=== PATIENT | male | born 1960 | race Caucasian/White ===

== ENCOUNTER → 2020-05-07 13:24 | Outpatient (BNVA) | payer MEDICARE, MEDICAID, SELFPAY | PROVIDERS: PCP Physician Assistant; Referring Provider Physician Assistant; Visit Provider Internal Medicine Endocrinology, Diabetes & Metabolism | DX: E06.3 Autoimmune thyroiditis (principal); E04.1 Nontoxic single thyroid nodule; E66.3 Overweight; E78.2 Mixed hyperlipidemia; E03.9 Hypothyroidism, unspecified | CPT/HCPCS: 99212 ==

== ENCOUNTER 2020-06-14 15:29 | Outpatient (REF) | payer MEDICARE, MEDICAID, SELFPAY | END 2020-06-14 15:30 | disposition home or self-care (01) | LOC: HO.LAB 15:29 | PROVIDERS: Visit Provider Internal Medicine | DX: Z20.828 Contact with and (suspected) exposure to other viral communicable diseases (principal) | CPT/HCPCS: C9803; U0003 ==

== ENCOUNTER 2020-11-12 12:33 | Outpatient (REF) | payer MEDICARE, MEDICAID, SELFPAY ==
[2020-11-12 13:56] LABS: Cholesterol 255 mg/dL; HDL Cholesterol 59 mg/dL; LDL Cholesterol Calculated 169 mg/dl; Triglycerides 136 mg/dL
[2020-11-12 14:16] LABS: Thyroid Stimulating Hormone 2.34 uIU/mL (0.32-4.0)
[2020-11-13 12:57] LABS: LDL Cholesterol Direct 179 mg/dL (<100)
== END 2020-11-12 12:34 | disposition home or self-care (01) ==
LOC: HO.LAB 12:33
PROVIDERS: PCP Physician Assistant; Visit Provider Internal Medicine Endocrinology, Diabetes & Metabolism
DX: E78.2 Mixed hyperlipidemia (principal); E06.3 Autoimmune thyroiditis; E03.8 Other specified hypothyroidism; E04.1 Nontoxic single thyroid nodule; E66.3 Overweight; Z68.29 Body mass index [BMI] 29.0-29.9, adult; Z79.899 Other long term (current) drug therapy
CPT/HCPCS: 36415; 80061; 83721; 84439; 84443; 99212

== ENCOUNTER 2021-11-16 15:32 | Outpatient (REF) | payer MEDICARE, MEDICAID, SELFPAY ==
[2021-11-16 15:49] LABS: Hematocrit 45.7 % (42.0-52.0); Hemoglobin 15.2 g/dl (14.0-18.0); Mean Corpuscular HGB Conc 33.3 g/dl (31.0-36.0); Mean Corpuscular Hemoglobin 30.3 pg (27.0-33.0); Mean Platelet Volume 9.4 fL (9.4-12.4); Platelet Count 319 X10*3/uL (160-400); Red Blood Count 5.02 X10*6/uL (4.60-5.80); Red Cell Distribution Width 12.4 % (11.0-16.0); White Blood Count 9.8 X10*3/uL (4.8-10.8)
[2021-11-16 15:59] LABS: Estimated Average Glucose 108 mg/dL; Hemoglobin A1c % 5.4 %
[2021-11-16 16:17] LABS: Alanine Aminotransferase 19 U/L (0-40); Albumin Level 4.2 g/dL (3.5-5.0); Alkaline Phosphatase 60 U/L (39-117); Anion Gap 16 (12-20); Aspartate Amino Transferase 22 U/L (5-37); Bilirubin Total 0.8 mg/dL (0.0-1.0); Blood Urea Nitrogen 8 mg/dL (9-16); Calcium 9.7 mg/dL (8.4-10.2); Carbon Dioxide 21 mmol/L (22-29); Chloride 105 mmol/L (96-108); Estimated Glomerular Filt Rate 50; Glucose Fasting 154 mg/dL (60-99); Potassium 4.3 mmol/L (3.3-5.1); Sodium 138 mmol/L (135-145); Total Protein 7.7 g/dL (6.5-8.0)
[2021-11-16 16:18] LABS: Alanine Aminotransferase 19 U/L (0-40); Albumin Level 4.2 g/dL (3.5-5.0); Alkaline Phosphatase 58 U/L (39-117); Anion Gap 15 (12-20); Aspartate Amino Transferase 22 U/L (5-37); Bilirubin Total 0.7 mg/dL (0.0-1.0); Blood Urea Nitrogen 8 mg/dL (9-16); Calcium 9.7 mg/dL (8.4-10.2); Carbon Dioxide 21 mmol/L (22-29); Chloride 106 mmol/L (96-108); Cholesterol 257 mg/dL; Estimated Glomerular Filt Rate 51; Glucose Fasting 152 mg/dL (60-99); HDL Cholesterol 54 mg/dL; LDL Cholesterol Calculated 162 mg/dl; Potassium 4.3 mmol/L (3.3-5.1); Sodium 138 mmol/L (135-145); Total Protein 7.6 g/dL (6.5-8.0); Triglycerides 209 mg/dL
[2021-11-16 16:39] LABS: TSH reflex Free T4 3.34 uIU/mL (0.32-4.0)
[2021-11-16 17:26] LABS: Creatinine Urine 619.67 mg/dL; Microalbum/Creatinine Ratio Ur 4.3 ug/mg cr
== END 2021-11-16 15:33 | disposition home or self-care (01) ==
LOC: HO.LAB 15:32
PROVIDERS: Nurse Practitioner Family; PCP Physician Assistant; Visit Provider Physician Assistant
DX: Z12.5 Encounter for screening for malignant neoplasm of prostate (principal); Z13.1 Encounter for screening for diabetes mellitus; E78.1 Pure hyperglyceridemia; I10 Essential (primary) hypertension; R73.02 Impaired glucose tolerance (oral)
CPT/HCPCS: 36415; 80053; 80061; 82043; 83036; 84153; 84443; 85027

== ENCOUNTER → 2022-06-19 10:45 | Outpatient (BNVA) | payer MEDICARE, MEDICAID, SELFPAY | PROVIDERS: PCP Physician Assistant; Referring Provider Physician Assistant; Visit Provider Physician Assistant | DX: Z12.11 Encounter for screening for malignant neoplasm of colon (principal) | CPT/HCPCS: 99202 ==

== ENCOUNTER 2022-06-28 15:34 | Outpatient (REF) | payer MEDICARE, MEDICAID, SELFPAY ==
--- NOTE | ~2022-06-28 | XR_ITS ---
EXAMINATION: XR KNEE AP STANDING CLINICAL INFORMATION: Bilateral AP knee standing. COMPARISON: None TECHNIQUE: AP bilateral standing view of the knees was obtained. FINDINGS: The medial and lateral compartment joint space is normal. No bony erosive changes seen. No loose bodies. The soft tissues are normal. XR/XR knee standing BI IMPRESSION: Unremarkable bilateral AP knee standing.
--- NOTE | ~2022-06-28 | US_ITS ---
EXAMINATION: US THYROID CLINICAL INFORMATION: Nontoxic single thyroid nodule. COMPARISON: Ultrasound soft tissue head/neck thyroid dated 01/18/2017. TECHNIQUE: Linear transducer thomas-scale and color Doppler examination with attention to the region of the thyroid. FINDINGS: SIZE: Measurements of the thyroid lobes and nodules are given in sagittal, anteroposterior and transverse dimensions respectively. Right Thyroid Lobe: 4.6 x 1.5 x 1.2 cm, volume 4.4 mL. Previously 4.4 x 1.8 x 1.7 cm, volume 7.0 mL. Parenchyma: The gland echotexture is heterogeneous. Thyroid vascularity is normal. Left Thyroid Lobe: 3.7 x 1.3 x 1.2 cm, volume 3.2 mL. Previously 3.7 x 1.5 x 1.4 cm, volume 4.1 mL. Parenchyma: The gland echotexture is heterogeneous. Thyroid vascularity is increased. Isthmus: 0.3 cm in maximum AP dimension. Previously 0.4 cm. No focal thyroid nodule is seen. NODES: No lymphadenopathy is seen in the tissue surrounding the thyroid gland. US/US thyroid IMPRESSION: Normal-sized thyroid gland with slight heterogeneous appearance in both lobes. There is slight increased vascularity in the right lobe. However, there is no nodule visualized at this time. No abnormal lymph nodes seen either. ACR TI-RADS RECOMMENDATION REFERENCE: Ultrasound-guided fine-needle aspiration, followup ultrasound, no further follow up. * TR1 (0 point) and TR 2 (2 points): No FNA or follow up * TR3 (3 points): FNA if more than or equal to 2.5 cm in maximum dimension, followup ultrasound in 1, 3 and 5 years if 1.5 to 2.4 cm in maximum dimension. * TR4 (4-6 points): FNA if more than or equal to 1.5 cm in maximum dimension, followup ultrasound in 1, 2, 3 and 5 years if 1 to 1.4 cm in maximum dimension. * TR5 (more than or equal to 7 points): FNA if more than or equal to 1 cm in maximum dimension, followup ultrasound every year for 5 years if 0.5 to 0.9 cm in maximum dimension. * TR3, TR4 or TR5 nodules that are below the size threshold for follow up receive no follow up.
== END 2022-06-28 15:35 | disposition home or self-care (01) ==
LOC: HO.US 15:34
PROVIDERS: PCP Physician Assistant; Visit Provider Physician Assistant
DX: E04.1 Nontoxic single thyroid nodule (principal); M17.0 Bilateral primary osteoarthritis of knee
CPT/HCPCS: 73565; 76536

== ENCOUNTER 2022-12-28 09:26 | Day surgery (SDC) | payer MEDICARE, MEDICAID, SELFPAY ==
[2022-12-26 10:26] VITALS: BMI 28.0
--- NOTE | 2022-12-26 14:41 | HO.ANESPROP2 ---
Documented by User: Natalie Saleh NP 12/26/22 14:41 HPI - Anesthesia Eval Consult details Narrative: 62yo M for Colonoscopy PMF Active Problems Active Problems: All Active Problems (Updated 06/19/22 @ 12:06 by Yue Patricio PA-C) Encounter for screening colonoscopy (Acute) Bilateral primary osteoarthritis of knee (Acute) Colon cancer screening (Acute) Adult general medical exam (Acute) Screening for prostate cancer (Acute) Screening for diabetes mellitus (Acute) HTN (hypertension) (Acute) MADHURI (generalized anxiety disorder) (Acute) Lumbar spine pain (Acute) Subclinical hypothyroidism (Acute) Mixed hypercholesterolemia and hypertriglyceridemia (Acute) Overweight (BMI 25.0-29.9) (Acute) Alcohol abuse (Acute) Margaret's disease (Acute) Thyroid nodule (Acute) Hypertriglyceridemia (Acute) Insomnia (Acute) Past Medical History Medical History Alcohol abuse Margaret's disease Hypertriglyceridemia Mixed hypercholesterolemia and hypertriglyceridemia Overweight (BMI 25.0-29.9) Screening for diabetes mellitus Screening for prostate cancer Subclinical hypothyroidism Thyroid nodule Family History Family History Father Gout Mother Diabetes Surgical History Surgical History History of colonoscopy History of surgery on wrist Hx of eye surgery Social History Social History Household Members: None Housing: Apartment Alcohol intake: current Alcohol intake frequency: 0-2 drinks per day Alcohol type: beer Patient Tobacco Use Status: Never used Tobacco e-Cigarette/Vaping Use: Never Used Use of substances other than those prescribed or required for medical reasons: No Advance Directives: No Advance Directives Information Provided: Yes service: No Current occupational status: retired and disabled Cognitive needs: No Hearing needs: No Vision needs: Yes (Pt wear reading glasses.) Meds Allergies Allergy/AdvReac Type Severity Reaction Status Date / Time lisinopril [LISINOPRIL] Allergy Unknown HIVES Verified 09/06/22 10:08 Lisinopril (10 MG) Allergy Unknown hives Uncoded 09/06/22 09:53 Exam Exam Date and Time: December 26, 2022 1441 Height,Weight and Vital Signs: Height 5 ft 8 in Weight 83.461 kg Assessment and Plan Assessment Anesthesia Assessment: Chart Reviewed Documented by User: Ana Joe MD 12/28/22 10:57 [facility] Past Medical History Medical History Alcohol abuse Margaret's disease Hypertriglyceridemia Mixed hypercholesterolemia and hypertriglyceridemia Overweight (BMI 25.0-29.9) Screening for diabetes mellitus Screening for prostate cancer Subclinical hypothyroidism Thyroid nodule Family History Family History Father Gout Mother Diabetes Family history of problems with anesthesia: No Surgical History Surgical History History of colonoscopy History of surgery on wrist Hx of eye surgery History of Problems with Anesthesia: No Social History Social History Household Members: None Housing: Apartment Alcohol intake: current Alcohol intake frequency: 0-2 drinks per day Alcohol type: beer Patient Tobacco Use Status: Never used Tobacco e-Cigarette/Vaping Use: Never Used Use of substances other than those prescribed or required for medical reasons: No Advance Directives: No Advance Directives Information Provided: Yes service: No Current occupational status: retired and disabled Cognitive needs: No Hearing needs: No Vision needs: Yes (Pt wear reading glasses.) Meds Allergies Allergy/AdvReac Type Severity Reaction Status Date / Time lisinopril [LISINOPRIL] Allergy Unknown HIVES Verified 09/06/22 10:08 Lisinopril (10 MG) Allergy Unknown hives Uncoded 09/06/22 09:53 Exam Airway Mallampati Class: II TM Dist: >3cm Loose/Missing/Broken Teeth: No Heart: rr Lungs: cta Assessment and Plan Assessment Anesthesia Assessment: Anesthesia Plan Discussed Final Anesthetic Review Family History of Problems with Anesthesia: No History of Problems with Anesthesia: No NPO: Yes ASA Class: II Final Preanesthetic Review: No Changes in Pt Med Stat, Meds/Allgs Chart Reviewed, Consent Obtained/Reviewed and Anes Risks/Benef Reviewed Patient Risk: Low Procedure Risk: Low Anesthetic Plan Anesthetic Plan: MAC: Disposition: Standard PACU
[2022-12-28 09:38] VITALS: BMI 28.0
[2022-12-28 09:57] VITALS: BP 147/76; PULSE 61; RESP 16; TEMP 36.6; O2SAT 96
[2022-12-28] MEDS: Lactated Ringers 1,000 ML 100 ML IVCONT (09:58)
--- NOTE | 2022-12-28 11:02 | P.OP_ITS ---
Operative Note Operative Note Date of Service: 12/28/22 Narrative: Procedure: Colonoscopy Indication: Screening Endoscopist: Thelma Sarmiento MD Anesthesia Provider: Santa Watkins CRNA Anesthesia type: MAC Instrument: Olympus [id number]-[id number] Consent: Indication, risks vs benefits, and alternatives were discussed with the patient who gave written informed consent to proceed. EKG, pulse, pulse oximetry and blood pressure were monitored throughout the procedure. Please see anesthesia flowsheet. Procedure: The patient was brought to the procedure room and placed in the left lateral decubitus position. IV medications were administered by the anesthesia provider in attendance. A digital rectal exam was performed which was abnormal due to significant anal stenosis which was dilated digitally. A distal attachment cap was affixed to the tip of the scope and the colonoscope was then inserted through the anus and advanced through the colon to the cecum at 70 cm,and terminal ileum. Mucosa was carefully examined under high definition white light as the instrument was slowly withdrawn in a retrograde panoramic fashion. Retroflexion was performed in rectum. The procedure was not difficult. There were no immediate obvious complications. The quality of the prep was BBPS: 3+2+2 = adequate Withdrawal time 9 minutes. Limitations: No limitations. Findings: Mucosa: Normal to cecum and terminal ileum. Protruding lesions: * Large internal hemorrhoids without stigmata of recent bleeding. Additional intervention: Small tear was noted at the anal orifice due to digital dilation. Lidocaine 10% was applied topically. Impression: 1. Normal colon and terminal ileum mucosa 2. Internal hemorrhoids 3. Anal stenosis (dilation) Recommendations: - Pt did not report any trouble with constipation or painful defecation (fissure) in pre-op, and no reported hx of hemorrhoidectomy. Can consider colorectal surgery referral for further evaluation of anal stenosis - Repeat colonoscopy for CRC screening in 10 years.
--- NOTE | 2022-12-28 11:02 | MHC.SHP ---
Pre-Procedural Eval Section A Date of Service: 12/28/22 Section B Chief Complaint: Encounter for screening for malignant neoplasm Details of Present Illness: PMH: Alcohol abuse Margaret's disease Hypertriglyceridemia Mixed hypercholesterolemia and hypertriglyceridemia Overweight (BMI 25.0-29.9) Screening for diabetes mellitus Screening for prostate cancer Subclinical hypothyroidism Thyroid nodule Surgical History: History of colonoscopy History of surgery on wrist Hx of eye surgery Present Medications: see Short Stay Collaborative assessment Allergies: Allergies Allergy/AdvReac Type Severity Reaction Status Date / Time lisinopril [LISINOPRIL] Allergy Unknown HIVES Verified 09/06/22 10:08 Lisinopril (10 MG) Allergy Unknown hives Uncoded 09/06/22 09:53 Review of Systems Review of Systems Comment: Ten point ROS negative Exam Exam Comment: Gen appear: No acute distress HEENT: no icterus Chest: No overt resp distress Abd: soft, nontender, nondistended Psych: Stable affect, answering questions appropriately Neuro: A/Ox3 noted to move all extremities spontaneously Ext: no peripheral edema Plan Diagnosis/Plan: Unchanged I have reviewed the history and physical and performed a pertinent physical examination on my patient. No changes have occurred unless specified. Time Spent With Patient Time: Total time managing care of this patient today ____ minutes.
[2022-12-28 11:50] VITALS: BP 134/77; PULSE 69; RESP 16; TEMP 36.5; O2SAT 98
[2022-12-28 12:05] VITALS: BP 136/76; PULSE 64; RESP 18; TEMP 36.3; O2SAT 98
== END 2022-12-28 12:40 | disposition home or self-care (01) ==
PROVIDERS: PCP Physician Assistant; Visit Provider Internal Medicine
PROC: 0DJD8ZZ Inspection of Lower Intestinal Tract, Via Natural or Artificial Opening Endoscopic (ICD-10-PCS; CPT 45378; principal; 2022-12-28 10:40)
DX: Z12.11 Encounter for screening for malignant neoplasm of colon (principal); K62.4 Stenosis of anus and rectum; K64.8 Other hemorrhoids; Z88.8 Allergy status to other drugs, medicaments and biological substances
CPT/HCPCS: 45905; G0121

== ENCOUNTER 2023-12-18 11:04 | Outpatient (AMB) | payer MEDICARE, MEDICAID, SELFPAY ==
--- NOTE | 2023-12-18 11:28 | A.OFFPC_ITS ---
Vital Signs 12/18/23 11:30 Height 5 ft 8 in Weight 164 lb 2 oz BMI 25.0 BP 104/50 L Blood Pressure Location Lt brachial Position Sitting Pulse 80 Pulse Source Pulse Oximeter Pulse Oximetry (%) 97 Oxygen Delivery Method Room Air Intake Visit Reasons: Pain Right Knee Intake Note: The patient is here for right knee pain persisting over the past two months, experiencing difficulty bending the knee or standing up. 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 Required: No Accompanied by: Self / Same As Patient Allergies lisinopril [LISINOPRIL] Allergy (Unknown, Verified 12/18/23 11:50) HIVES Lisinopril (10 MG) Allergy (Unknown, Uncoded 12/18/23 11:50) hives Tobacco use date assessed: 12/18/23 Dental Screening Dental Screen Date: 12/18/23 Did you have a dental visit in the last 12 months?: Yes Did you have a dental problem in the last 6 months where you did not have access to dental care?: No Was dental information given to patient?: Patient has dentist HPI Pain Right Knee HPI Details Patient is a 63-year-old male here today for a problem visi/follow-up: t Patient has a past medical history significant for gout, hyperlipidemia, hypertension, anxiety, mood disorder, alcohol use disorder. He reports he has been having right knee pain over the last 2 months that actually has been getting better since he has been taking [id number] arthritic medication. He would still like to have x-rays and seeing orthopedic Also noted significant weight loss since last office visit. Will check up on his thyroid. CHRONIC MEDICAL CONDITIONS-- .. Alcohol use disorder:? Drinking 3-4 beers per day.? He denies having any withdrawal symptoms suggest seizures.? He does use tylenol 3 On occasions his lower back pain.? Warned him about using Tylenol No. 3 with this medication any promises not to use them in conjunction with each other. . HTN: Doesn't follow his BP at home. Blood pressure slightly on the low side today in office. Could be because of his weight loss ? Continues on enalapril though side effect.? Denies any headaches, chest discomfort, palpitations. .. Hypothyroidism:? Patient was followed by oriental rug stretcher though has left the practice.? Most recent TSH stable.? Continues on levothyroxine 50 mcg daily.? He has been found to have a thyroid nodule on is due for a thyroid ultrasound that it missed appointment.? Will pre order ultrasound thyroid .. Mood disorder:? He was seeing a psychiatrist years ago though has lost follow- up.? He was previously on Xenia pain though this has been discontinued..? He feels his mood has been stable without medication at this time. REports he is still drinking 3-4 beer per day. [facility] Medical History Screening for prostate cancer Screening for diabetes mellitus Subclinical hypothyroidism Mixed hypercholesterolemia and hypertriglyceridemia Overweight (BMI 25.0-29.9) Alcohol abuse Margaret's disease Thyroid nodule Hypertriglyceridemia Surgical History History of colonoscopy History of surgery on wrist Hx of eye surgery Family History Father Gout Mother Diabetes Social History Household Members: None Housing: Apartment Alcohol intake: current Alcohol intake frequency: 0-2 drinks per day Alcohol type: beer Patient Tobacco Use Status: Never used Tobacco e-Cigarette/Vaping Use: Never Used service: No Current occupational status: retired and disabled Cognitive needs: No Hearing needs: No Vision needs: Yes (Pt wear reading glasses.) Questionnaire PHQ-9 Over the last 2 weeks, how often have you been bothered by any of the following problems? 1. Little interest or pleasure in doing things: not at all 2. Feeling down, depressed, or hopeless: not at all 3. Trouble falling or staying asleep, or sleeping too much: not at all 4. Feeling tired or having little energy: not at all 5. Poor appetite or overeating: not at all 6. Feeling bad about yourself - or that you are a failure or have let yourself or your family down: not at all 7. Trouble concentrating on things, such as reading the newspaper or watching television: not at all 8. Moving or speaking so slowly that other people could have noticed. Or the opposite - being so fidgety or restless that you have been moving around a lot more than usual: not at all 9. Thoughts that you would be better off or of hurting yourself in some way: not at all Total score: 0 Depression Screening Interpretation: Negative Depression Screening Done: Yes 16196 - PHQ-9 Billing: Yes Source: Developed by Drs. Edson Lemons, Ellie Dowd, Ba Ibarra and colleagues, with an educational malcolm from [employer]. Thrive Questionnaire Date Thrive assessed: 12/18/23 I am a: Patient What is your living situation today?: I have a steady place to live Within the past 12 months, did the food you bought not last and you didn't have the money to get more?: Never true Within the past 12 months, did you worry whether your food would run out before you got money to buy more?: Never true Do you have trouble paying for medicines?: No Do you have trouble getting transportation to medical appointments?: No Do you have trouble paying your heating and electricity bill?: No Do you have trouble taking care of your child, family member or friend?: No Do you have trouble with day-to-day activities such as bathing, preparing meals, shopping, managing finances, etc.?: No Are you currently unemployed and looking for a job?: No Are you interested in more education?: No Please select the resources that you would like help with: None Currently or been in a relationship where the following occur: no concerns reported THRIVE Score: 0 AUDIT C Alcohol Use Questionnaire (AUDIT-C) 1. How often do you have a drink containing alcohol?: 2-3 times a week 2. How many drinks containing alcohol do you have on a typical day when you are drinking?: 3 or 4 (beer during the weekend and hard liquor on holiday.) 3. How often do you have six or more drinks on one occasion?: Monthly Total Score: 6 MADHURI-7 AMB Questionnaire MADHURI-7 Date MADHURI - 7 assessed: 12/18/23 Feeling nervous, anxious, or on edge: 0 = Not at all Not being able to stop or control worryin = Not at all Worrying too much about different things: 0 = Not at all Trouble relaxin = Not at all Being so restless that it is hard to sit still: 0 = Not at all Becoming easily annoyed or irritable: 0 = Not at all Feeling afraid as if something awful might happen: 0 = Not at all Total MADHURI-7 score (0-4 normal; 5-9 mild; 10-14 moderate; 15-21 severe): 0 Source: Developed by Drs. Edson Lemons, Ellie Dowd, Ba Ibarra and colleagues, with an educational malcolm from [employer]. MADHURI-7 Assessment Billing MADHURI-7 Assessment Tool: MADHURI-7 Assessment 47760 Review of Systems Const Denies headache(s) Eyes Denies loss of vision ENT Denies vertigo, Denies dizziness, Denies headache(s) and Denies sore throat Card Denies chest pain, Denies leg edema and Denies lightheadedness Resp Denies cough, Denies hemoptysis and Denies wheezing GI Denies abdominal pain, Denies melena, Denies constipation, Denies diarrhea and Denies vomiting Denies dysuria, Denies urinary frequency and Denies urinary urgency Musc Denies arthralgias, Denies joint swelling, Denies numbness and Denies tingling Neuro Denies Abnormal speech present, Denies behavioral changes, Denies vertigo, Denies dizziness, Denies headache(s), Denies loss of vision, Denies memory loss, Denies numbness and Denies tingling Psych Denies anxiety, Denies behavioral changes, Denies depression, Denies memory loss and Denies panic attacks Arsen/Lymph Denies easy bleeding and Denies easy bruising Aller/Immun Denies wheezing Physical exam (Primary Care) Vital Signs: Last Vital Signs Pulse 80 12/18/23 11:30 BP 104/50 L 12/18/23 11:30 Pulse Ox 97 12/18/23 11:30 Oxygen Delivery Method Room Air 12/18/23 11:30 BMI result Body Mass Index 25.0 Tobacco/Smoking Status: Tobacco use Status Tobacco use date assessed 12/18/23 12/18/23 11:32 Patient Tobacco Use Status Never used Tobacco 12/18/23 11:28 e-Cigarette/Vaping Use Never Used 12/18/23 11:28 PHQ-9: PHQ-9 Score PHQ-9: Total score 0 12/18/23 12:32 Depression Screening Interpretation: Negative Thrive Assessment: Date of Thrive Assessment Date Thrive assessed 12/18/23 12/18/23 11:32 Currently or been in a relationship where the following occur: no concerns reported Const General: healthy appearing, no acute distress, alert and awake Nutritional Appearance: well nourished Orientation/consciousness: oriented to person, oriented to place and oriented to time HENMT Ears: TM's normal bilaterally General nose exam: Normal nasal mucous membranes and turbinates present Eyes Conjunctivae: conjunctivae normal Sclerae: sclerae normal Pupils: Equal, round and reactive pupils present Neck Neck: Yes no lymphadenopathy and Yes no JVD Thyroid: Thyroid normal Carotids: no bruits Resp Effort & Inspection: normal respiratory effort and not tachypneic Auscultation: no crackles, no rales, no rhonchi and no wheezes Cardio Rate: regular rate Rhythm: regular rhythm Heart sounds: no murmurs and normal S1 and S2 GI Palpation (GI): Soft to palpation, nontender, no hepatomegaly and no splenomegaly Auscultation: normal bowel sounds Skin General skin exam: no rashes or lesions noted and dry skin Neuro General: oriented to person, oriented to place and oriented to time Cranial nerves: Yes Equal, round and reactive pupils present Speech: No Abnormal speech present Gait exam (Neuro): Normal gait present Motor exam (neuro): no tremor noted Extrem Right upper extremity: full ROM Left upper extremity: full ROM Right lower extremity: full ROM; no edema Left lower extremity: full ROM; no edema Psych Mental Status: mental status grossly normal Speech and movement: Normal speech and movement present Affect: normal affect Attitude: cooperative Thought process: Normal thought process present Assessment and Plan Assessment & Plan (1) HTN (hypertension): Code(s): I10 - Essential (primary) hypertension Qualifiers: Hypertension type: unspecified Qualified Code(s): I10 - Essential (primary) hypertension Plan: Blood pressure acceptable today in office. Will continue current antihypertensive medication with goal blood pressure to be below 140/90. (2) MADHURI (generalized anxiety disorder): Code(s): F41.1 - Generalized anxiety disorder Plan: Patient's MADHURI-7 score 0, has a history of anxiety. Not taking any mental health medications at this time. Not speaking with a mental health therapist or psychiatrist anymore. (3) Hypertriglyceridemia: Code(s): E78.1 - Pure hyperglyceridemia Plan: Patient's most recent fasting lipids showing elevated triglycerides likely related to his alcohol use. He does report having 2-3 drinks per day and does understand he needs to down. (4) Alcohol abuse: Code(s): F10.10 - Alcohol abuse, uncomplicated Plan: As per HPI patient does report drinking 2-3 beers daily. We did discuss the need for him to cut down his weekly amount of alcohol consumption and patient does agree and understands. (5) Bilateral primary osteoarthritis of knee: Code(s): M17.0 - Bilateral primary osteoarthritis of knee Plan: Patient reports worsening knee pain when bending down and kneeling. He is asking for DIRECTOR OF ANALYTICS to help him with activities of daily living such as cleaning in his apartment. Advised on getting x-rays of bilateral knees to evaluate for advanced arthritis. 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 Has noted significant amount of weight loss since last office visit. Will recheck TSH to ensure normal. r. Orders: Orders Microalbumin, Random (w Creat) Today I10 - Essential (primary) hypertension Comprehensive [place]. Panel Fast Today I10 - Essential (primary) hypertension TSH reflex Free T4 Today E06.3 - Autoimmune thyroiditis XR knee RT 3V Today M17.0 - Bilateral primary osteoarthritis of knee XR knee LT 3V Today M17.0 - Bilateral primary osteoarthritis of knee Lipid Panel Today E78.2 - Mixed hyperlipidemia Referrals Orthopedics Referral M17.0 - Bilateral primary osteoarthritis of knee Medications: Refilled fenofibrate 160 mg PO DAILY 30 days 30 tabs 6RF E78.2 - Mixed hyperlipidemia allopurinol 300 mg PO DAILY 30 caps 6RF atorvastatin 10 mg PO BEDTIME 30 tabs 6RF E78.2 - Mixed hyperlipidemia Discontinued hydroxyzine HCl Discontinued Reason: Doctor's Order 50 mg PO BEDTIME 30 tabs 6RF F41.1 - Generalized anxiety disorder Patient Instructions: Goal: Blood pressure to remain below 140/90 and above 100/60 Barriers: Adherence to physical activity and healthy eating habits Coding Level of Care Code Est Pt Level 4 (91311) Complex EM visit Add On G2211 Diagnoses Hypertension, unspecified type I10 Hypertension type: unspecified MADHURI (generalized anxiety disorder) F41.1 Hypertriglyceridemia E78.1 Alcohol abuse F10.10 Bilateral primary osteoarthritis of knee M17.0 Margaret's disease E06.3 Additional Codes MADHURI-7 Assessment Billing - MADHURI-7 Assessment Tool: MADHURI-7 Assessment [id number] ([id number])
[2023-12-18 11:30] VITALS: BP 104/50; PULSE 80; O2SAT 97; BMI 25.0
== END 2023-12-18 12:04 | disposition home or self-care (01) ==
PROVIDERS: PCP Physician Assistant; Visit Provider Physician Assistant
DX: I10 Essential (primary) hypertension (principal); F41.1 Generalized anxiety disorder; E78.1 Pure hyperglyceridemia; F10.10 Alcohol abuse, uncomplicated; M17.0 Bilateral primary osteoarthritis of knee; E06.3 Autoimmune thyroiditis
CPT/HCPCS: 99214; G2211

== ENCOUNTER 2024-02-05 09:56 | Outpatient (REF) | payer MEDICARE, MEDICAID, SELFPAY ==
[2024-02-05 11:43] LABS: Alanine Aminotransferase 23 U/L (0-40); Albumin Level 4.6 g/dL (3.5-5.0); Alkaline Phosphatase 48 U/L (39-117); Anion Gap 13 (12-20); Aspartate Amino Transferase 30 U/L (5-37); Bilirubin Total 0.3 mg/dL (0.0-1.0); Blood Urea Nitrogen 14 mg/dL (9-16); Carbon Dioxide 27 mmol/L (22-29); Chloride 107 mmol/L (96-108); Cholesterol 196 mg/dL (<200); Estimated Glomerular Filt Rate > 60; Glucose Fasting 100 mg/dL (60-99); HDL Cholesterol 65 mg/dL (>40); LDL Cholesterol Calculated 95 mg/dL (<100); Potassium 4.6 mmol/L (3.3-5.1); Sodium 142 mmol/L (135-145); Triglycerides 183 mg/dL (<150)
[2024-02-05 11:48] LABS: Creatinine Urine 212.87 mg/dL; Microalbum/Creatinine Ratio Ur 5.1 ug/mg cr (<30)
[2024-02-05 11:56] LABS: TSH reflex Free T4 3.55 uIU/mL (0.32-4.0)
== END 2024-02-05 09:57 | disposition home or self-care (01) ==
LOC: HO.XRAY 09:56
PROVIDERS: PCP Physician Assistant; Visit Provider Physician Assistant
DX: I10 Essential (primary) hypertension (principal); E06.3 Autoimmune thyroiditis; E78.2 Mixed hyperlipidemia
CPT/HCPCS: 36415; 80053; 80061; 82043; 82570; 84443

== ENCOUNTER 2024-02-13 08:10 | Outpatient (REF) | payer MEDICARE, MEDICAID, SELFPAY ==
--- NOTE | ~2024-02-13 | XR_ITS ---
EXAMINATION: XR KNEE, LEFT CLINICAL INFORMATION: Pain. COMPARISON: 06/20/2022 TECHNIQUE: AP standing view of bilateral knees as well as 2 views of the left knee. FINDINGS: Left Knee: Trace joint effusion. Extensive vascular calcifications. Mild narrowing of the lateral compartment with small lateral marginal osteophytes. Small posterior patellar osteophytes. AP standing view of the right knee demonstrates minimal narrowing of the lateral compartment with tiny lateral marginal osteophytes. XR/XR knee LT 3V IMPRESSION: Mild degenerative changes left knee. Electronically signed by: Tonia Friedman MD 03/12/2024 07:27 AM EDT
--- NOTE | ~2024-02-13 | XR_ITS ---
EXAMINATION: XR KNEE, RIGHT CLINICAL INFORMATION: Primary osteoarthritis right knee. COMPARISON: 06/20/2022 TECHNIQUE: Lateral and sunrise views of the right knee. FINDINGS: Extensive vascular calcifications. Tiny posterior patellar osteophytes with narrowing of the patellofemoral space. XR/XR knee RT 3V IMPRESSION: Mild degenerative changes. Electronically signed by: Tonia Friedman MD 03/12/2024 07:27 AM EDT
== END 2024-02-13 08:11 | disposition home or self-care (01) ==
LOC: HO.HOSX 08:10
PROVIDERS: PCP Physician Assistant; Visit Provider Physician Assistant
DX: M25.562 Pain in left knee (principal); M17.0 Bilateral primary osteoarthritis of knee
CPT/HCPCS: 73562; 99202

== ENCOUNTER 2024-02-13 09:21 | Outpatient (AMB) | payer MEDICARE, MEDICAID, SELFPAY ==
[2024-02-13 09:23] VITALS: BMI 24.9
--- NOTE | 2024-02-13 09:23 | A.OFFVIS_ITS ---
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 Patient reports his pain has been present for about a year, stating a few months ago he had an increase in pain with swelling and was unable to bend his knee. He felt some relief in his swelling after taking OTC osteo Bi- Flex. He was seen by his PCP and was referred to orthopedics. The past couple of days he has a constant throbbing at the anterior aspect of knee with his right knee being the worse. Denies any injury. HX of gout however he has not episode in a long time. HX of injection and aspiration about 20 years ago. 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 He reports his pain worsened a few months ago with swelling where he was unable to bend his knee. He was seen by his PCP who referred him to our office. He felt some relief in his swelling after taking OTC osteo Bi-Flex. He currently states he has constant throbbing pain at the anterior aspect of his bilateral knees that is worse on his right knee. His pain is aggravated with stair use. He has not had any injury in the past. He had an injection and aspiration about 20 years ago. He has a history of gout. 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 PFSH Medical History Screening for prostate cancer Screening for diabetes mellitus Subclinical hypothyroidism Mixed hypercholesterolemia and hypertriglyceridemia Overweight (BMI 25.0-29.9) Alcohol abuse Margaret's disease Thyroid nodule Hypertriglyceridemia Surgical History History of colonoscopy History of surgery on wrist Hx of eye surgery Family History Father Gout Mother Diabetes Social History Household Members: None Housing: Apartment Alcohol intake: current Alcohol intake frequency: 0-2 drinks per day Alcohol type: beer Patient Tobacco Use Status: Never used Tobacco e-Cigarette/Vaping Use: Never Used service: No Current occupational status: retired and disabled Cognitive needs: No Hearing needs: No Vision needs: Yes (Pt wear reading glasses.) Review of Systems Const All systems reviewed & are unremarkable except as noted in HPI and below Physical Exam Vital Signs: BMI result Body Mass Index 24.9 Const General: cooperative, healthy appearing, comfortable, no acute distress, well developed and alert Orientation/consciousness: patient oriented x3 HEENT Head: Yes normal to inspection, Yes normocephalic and Yes atraumatic Eyes General: appearance normal, both eyes and all related structures Resp Effort & Inspection: normal respiratory effort and able to speak in complete sentences Cardio Rate: regular rate Peripheral pulses: Peripheral pulses 2+ throughout GI Palpation (GI): Soft to palpation Skin Lesions: no lesions Rashes: no rashes Neuro General: patient oriented x3 Extrem Other: Bilateral knee: Skin intact, no erythema or joint effusion. Retropatellar tenderness present. Full ROM with crepitus. Negative Надрей?s. No ligamentous laxity. NVI. ? Results Reviewed Results Reviewed: Xrays were obtained in the office today and personally reviewed by of rancho knee show lateralziation of the patella with osteophyte formation Assessment & Plan Assessment & Plan (1) Patellofemoral arthritis: Code(s): M17.10 - Unilateral primary osteoarthritis, unspecified knee Category: Medical (2) Degenerative arthritis of knee, bilateral: Code(s): M17.0 - Bilateral primary osteoarthritis of knee Category: Medical Plan We discussed options today, which include steroid injection. The patient did consent to move forward with the bilateral knee injection, which was tolerated well. I recommended rest, ice, and elevation and OTC anti-inflammatories as needed for discomfort. If symptoms persist or worsen, patient will contact the office, otherwise follow-up as needed. Orders: Orders XR knee LT 3V Today M25.562 - Pain in left knee PT Evaluation and Treatment Today M17.0 - Bilateral primary osteoarthritis of knee, M17.10 - Unilateral primary osteoarthritis, unspecified knee XR knee RT 3V Today M17.11 - Unilateral primary osteoarthritis, right knee Patient Instructions: Scribed for Shanta Chávez PA-C, by Ming Worthington medical education manager, on 02/13/2024 at 9:00 AM EST.? I, Shanta Chávez PA-C, have personally reviewed and agree with the information entered by the scribe. Coding Level of Care Code New Pt Level 3 (19334) Diagnoses Patellofemoral arthritis M17.10 Degenerative arthritis of knee, bilateral M17.0
== END 2024-02-13 10:22 | disposition home or self-care (01) ==
LOC: HO.HOS 09:21
PROVIDERS: PCP Physician Assistant; Visit Provider Physician Assistant
DX: M17.0 Bilateral primary osteoarthritis of knee (principal)
CPT/HCPCS: 99203

== ENCOUNTER 2024-03-12 13:19 | Outpatient (AMB) | payer MEDICARE, MEDICAID, SELFPAY ==
--- NOTE | 2024-03-12 13:23 | A.OFFPC_ITS ---
Vital Signs 3 03/12/24 13:24 Height 5 ft 8 in Weight 167 lb BMI 25.4 BP 106/60 Blood Pressure Location Lt brachial Position Sitting Pulse 67 Pulse Source Pulse Oximeter Pulse Oximetry (%) 96 Oxygen Delivery Method Room Air Intake Visit Reasons: PE Intake Note: Patient is here today for a physical. Trial Judge Required: No Accompanied by: Self / Same As Patient Allergies lisinopril [LISINOPRIL] Allergy (Unknown, Verified 03/12/24 13:55) HIVES Lisinopril (10 MG) Allergy (Unknown, Uncoded 03/12/24 13:55) hives Medication List - Last Reconciled 03/12/24 by Pravin Dupree PA-C acetaminophen-codeine 300-30 mg 1 tab PO Q8H PRN 7 days allopurinol 300 mg PO DAILY artifi.tears(hypromellose)(PF) 0.3% 1 drp ophthalmic (eye) Q4-6H PRN 30 days atorvastatin 10 mg PO BEDTIME enalapril maleate 10 mg PO DAILY 90 days fenofibrate 160 mg PO DAILY 30 days levothyroxine 50 mcg PO DAILY 30 days Tobacco use date assessed: 12/18/23 Dental Screening Dental Screen Date: 12/18/23 HPI PE 2 HPI0 Details Patient is a 63-year-old male here today for a routine annual physical. Patient has a past medical history significant for gout, hyperlipidemia, hypertension, anxiety, mood disorder, alcohol use disorder. CHRONIC MEDICAL CONDITIONS--> .. Alcohol use disorder:? Drinking 3-4 beers per day.? He denies having any withdrawal symptoms suggest seizures.? He does use tylenol 3 On occasions his lower back pain.? Warned him about using Tylenol No. 3 with this medication any promises not to use them in conjunction with each other. . HTN: Doesn't follow his BP at home. Blood pressure slightly on the low side today in office. Patient continues with daily use of enalapril without any side effect. Denies any headaches, chest discomfort, palpitations. .. Hypothyroidism:?ost recent TSH stable.? Continues on levothyroxine 50 mcg daily.? Patient's weight has now stabilized. .. Mood disorder:? He was seeing a psychiatrist years ago though has lost follow- up.? Patient previously on olanzapine though has discontinued this medication has lost significant amount of weight...? He feels his mood has been stable without medication at this time. REports he is still drinking 3-4 beer per day. Vaccines: Up-to-date with shingles, tetanus, RSV, COVID vaccines. Considering flu vaccine this year Colorectal cancer screening--> Done in 2022-normal repeat 10 years . [facility] Medical History Screening for prostate cancer Screening for diabetes mellitus Subclinical hypothyroidism Mixed hypercholesterolemia and hypertriglyceridemia Overweight (BMI 25.0-29.9) Alcohol abuse Margaret's disease Thyroid nodule Hypertriglyceridemia Surgical History History of colonoscopy History of surgery on wrist Hx of eye surgery Family History Father Gout Mother Diabetes Social History (Updated 03/12/24 @ 13:59 by Pravin Dupree PA-C) Household Members: None Housing: Apartment Alcohol intake: current Alcohol intake frequency: 0-2 drinks per day Alcohol type: beer Patient Tobacco Use Status: Never used Tobacco e-Cigarette/Vaping Use: Never Used service: No Current occupational status: retired and disabled Cognitive needs: No Hearing needs: No Vision needs: Yes (Pt wear reading glasses.) Questionnaire Thrive Questionnaire Date Thrive assessed: 12/18/23 MADHURI-7 AMB Questionnaire MADHURI-7 Date MADHURI - 7 assessed: 12/18/23 Source: Developed by Drs. Edson Lemons, Ellie Dowd, Ba Ibarra and colleagues, with an educational malcolm from [employer]. Review of Systems Const Denies body aches, Denies chills, Denies excessive sweating, Denies fatigue, Denies fever(s) and Denies headache(s) Eyes Denies blurry vision ENT Denies dysphagia, Denies vertigo, Denies dizziness, Denies headache(s), Denies hearing loss and Denies tinnitus Card Denies chest pain, Denies chest pain with activity, Denies syncope, Denies irregular heart rhythm and Denies dyspnea Resp Denies chest congestion, Denies cough, Denies hemoptysis, Denies dyspnea and Denies wheezing GI Denies abdominal pain, Denies melena, Denies hematochezia, Denies coffee ground emesis, Denies dysphagia, Denies diarrhea, Denies nausea and Denies vomiting Denies difficulty urinating, Denies dysuria, Denies urinary frequency, Denies urinary hesitancy and Denies urinary urgency Musc Denies arthralgias, Denies limited range of motion, Denies muscle cramps and Denies muscle weakness Skin/Breast Denies rash and Denies skin ulcer Neuro Denies Abnormal speech present, Denies confusion, Denies vertigo, Denies dizziness, Denies syncope, Denies headache(s), Denies memory loss and Denies seizure-like activity Psych Denies anxiety, Denies confusion, Denies depression, Denies memory loss, Denies panic attacks and Denies paranoia Endo Denies excessive sweating, Denies fatigue, Denies flushing, Denies polydipsia and Denies polyuria Aller/Immun Denies wheezing Physical exam (Primary Care) Vital Signs: Last Vital Signs Pulse 67 03/12/24 13:24 BP 106/60 03/12/24 13:24 Pulse Ox 96 03/12/24 13:24 Oxygen Delivery Method Room Air 03/12/24 13:24 BMI result Body Mass Index 25.4 Tobacco/Smoking Status: Tobacco use Status Tobacco use date assessed 12/18/23 03/12/24 13:24 Patient Tobacco Use Status Never used Tobacco 03/12/24 13:24 e-Cigarette/Vaping Use Never Used 03/12/24 13:24 Thrive Assessment: Date of Thrive Assessment Date Thrive assessed 12/18/23 03/12/24 13:24 Const General: cooperative, comfortable, no acute distress, alert and awake; No confusion Orientation/consciousness: oriented to person, oriented to place, patient oriented x3 and No confusion HENMT Head: Yes normocephalic Ears: external ears normal and TM's normal bilaterally Face and sinus: No sinus tenderness Mouth: Normal oral and palatal mucosa present and tongue normal Teeth and gingiva: dentition normal and gingiva normal Throat: Yes posterior oropharynx normal, Yes tonsils normal and Yes uvula midline Eyes Conjunctivae: conjunctivae normal Sclerae: sclerae normal Pupils: Equal, round and reactive pupils present EOM: EOMs intact bilaterally Direct Ophthalmoscopy: No no photophobia Neck Neck: Yes no lymphadenopathy, No tender and Yes no JVD Thyroid: Thyroid normal Carotids: no bruits Neck images: 2 1. PAIN TO PALPATION IN THE AREA OUTLINED, NO PALPABLE LUMPS OR DEFORMITIES. Chest Chest palpation & inspection: no tenderness Resp Effort & Inspection: normal respiratory effort, no audible wheezes, not labored and no stridor Auscultation: no crackles, no rales, no rhonchi and no wheezes Cardio Jugular venous distension: no JVD Rate: regular rate, not bradycardic and not tachycardic Rhythm: regular rhythm Bruits: no carotid bruits Peripheral pulses: Peripheral pulses 2+ throughout GI Inspection: Yes normal to inspection, No abdominal wall ecchymosis and No visible herniation Palpation (GI): Soft to palpation, nontender, no guarding, not rigid and No hepatosplenomegaly present Auscultation: normoactive bowel sounds General: Yes no CVA tenderness Back/Spine/Pelvis Back: no CVA tenderness and No back tenderness Cervical Spine: cervical ROM normal Thoracic/Lumbar Spine: thoracic and lumbar spine normal to inspection, straight leg raise negative bilaterally, No thoraco-lumbar ROM limited and No lumbar spinal tenderness Skin Lesions: no lesions Rashes: no rashes Wounds: no wounds Neuro General: oriented to person, oriented to place, patient oriented x3, CN's II-XI intact bilaterally and No confusion Cranial nerves: Yes Equal, round and reactive pupils present and Yes Normal accommodation reflex present Cognition (Neuro): normal cognition Speech: No Abnormal speech present Gait exam (Neuro): Normal gait present Motor exam (neuro): 5/5 motor strength present throughout Extrem Right upper extremity: full ROM; no cyanosis Left upper extremity: full ROM; no cyanosis Right lower extremity: no edema Left lower extremity: no edema Psych Appearance: grossly normal Mental Status: mental status grossly normal Affect: normal affect Attitude: cooperative Thought process: Normal thought process present Assessment and Plan Assessment & Plan (1) Adult general medical exam: Code(s): Z00.00 - Encounter for general adult medical examination without abnormal findings (2) HTN (hypertension): Code(s): I10 - Essential (primary) hypertension Qualifiers: Hypertension type: unspecified Qualified Code(s): I10 - Essential (primary) hypertension Plan: Blood pressure acceptable today in office. Will continue current antihypertensive medication with goal blood pressure to be below 140/90. (3) MADHURI (generalized anxiety disorder): Code(s): F41.1 - Generalized anxiety disorder Plan: Anxiety has been stable.. Not taking any mental health medications at this time. Not speaking with a mental health therapist or psychiatrist anymore. (4) Hypertriglyceridemia: Code(s): E78.1 - Pure hyperglyceridemia Plan: Most recent fasting lipid panel showing good control of his total cholesterol, LDL and triglycerides. He will continue on low-dose statin therapy with goal LDL to remain below 130 (5) Alcohol abuse: Code(s): F10.10 - Alcohol abuse, uncomplicated Plan: As per HPI patient does report drinking 2-3 beers daily. We did discuss the need for him to cut down his weekly amount of alcohol consumption and patient does agree and understands. (6) Bilateral primary osteoarthritis of knee: Code(s): M17.0 - Bilateral primary osteoarthritis of knee Plan: Has seen Orthopedics whom recommended physical therapy, now in physical therapy which has been helping him reduce his bilateral knee pain. (7) Margaret's disease: Code(s): E06.3 - Autoimmune thyroiditis Plan: Patient continues on levothyroxine 50 mcg daily. Has noted significant amount of weight loss since last office visit. Will recheck TSH to ensure normal. r. (8) Cervical spine pain: Code(s): M54.2 - Cervicalgia Plan: Patient reports a four-month history of left-sided neck pain. He can not recall an injury to his. Will send for x-ray to evaluate for any advanced arthritis or disc height loss. Will consider formal physical therapy for his neck. Orders: Orders 2 Microalbumin, Random (w Creat) Today I10 - Essential (primary) hypertension Comprehensive [place]. Panel Fast Today I10 - Essential (primary) hypertension TSH reflex Free T4 Today E06.3 - Autoimmune thyroiditis XR cervical spine 4V Today M54.2 - Cervicalgia Complete Blood Count no Diff Today I10 - Essential (primary) hypertension Prostate Specific Antigen Scr Today I10 - Essential (primary) hypertension, Z12.5 - Encounter for screening for malignant neoplasm of prostate Coding Level of Care Code Est Pt Prev Care 40-64y(50454) Diagnoses Adult general medical exam Z00.00 Hypertension, unspecified type I10 Hypertension type: unspecified MADHURI (generalized anxiety disorder) F41.1 Hypertriglyceridemia E78.1 Alcohol abuse F10.10 Bilateral primary osteoarthritis of knee M17.0 Margaret's disease E06.3 Cervical spine pain M54.2
[2024-03-12 13:24] VITALS: BP 106/60; PULSE 67; O2SAT 96; BMI 25.4
== END 2024-03-12 14:15 | disposition home or self-care (01) ==
PROVIDERS: PCP Physician Assistant; Visit Provider Physician Assistant
DX: Z00.00 Encounter for general adult medical examination without abnormal findings (principal); I10 Essential (primary) hypertension; F41.1 Generalized anxiety disorder; E78.1 Pure hyperglyceridemia; F10.10 Alcohol abuse, uncomplicated; M17.0 Bilateral primary osteoarthritis of knee; E06.3 Autoimmune thyroiditis; M54.2 Cervicalgia
CPT/HCPCS: 99396

== ENCOUNTER 2024-03-18 12:03 | Outpatient (REF) | payer MEDICARE, MEDICAID, SELFPAY ==
--- NOTE | ~2024-03-18 | XR_ITS ---
EXAMINATION: XR CERVICAL SPINE CLINICAL INFORMATION: Neck pain COMPARISON: None available. TECHNIQUE: 5 views of cervical spine including bilateral oblique views. FINDINGS: Cervical vertebrae have normal height and alignment. No fracture or bone destruction. Mild disc height narrowing and small vertebral endplate spurs C5-C6. Neural foramina are open bilaterally. Facet joints are normal. Carotid arteries vascular calcifications bilaterally. XR/XR cervical spine 4V IMPRESSION: 1. No acute abnormality. 2. Mild degenerative spondylosis of cervical spine. Electronically signed by: Ramon Kee MD 03/31/2024 03:53 PM EDT
== END 2024-03-18 12:04 | disposition home or self-care (01) ==
LOC: HO.XRAY 12:03
PROVIDERS: PCP Physician Assistant; Visit Provider Physician Assistant
DX: M54.2 Cervicalgia (principal)
CPT/HCPCS: 72050

== ENCOUNTER 2024-04-18 11:00 | Outpatient (RCR) | payer MEDICARE, MEDICAID, SELFPAY ==
--- NOTE | 2024-03-06 13:02 | MHC.PT.EP ---
[facility] [place] Office [place] Office [place] Office [address] [phone] F: [phone] F: [phone] F: [phone] F: [phone] Physical Therapy Plan of Care Date of Evaluation: 03/05/24 Date of Surgery: n/a Diagnosis: Patellofemoral arthritis Degenerative arthritis of knee, bilateral Assessment: Pt is a pleasant 63yo M who presents to PT with B knee pain. Pt presents to PT with current impairments in pain, decreased muscle length, decreased knee strength B, and impaired body mechanics. He is limited functionally by prolonged sitting, prolonged standing, squatting, and descending stairs. He is a good candidate for skilled PT in order to address current impairments to facilitate return to PLOF. He is recommended to be seen 2x/week for 4 weeks and will be reassessed at that time Frequency and Duration: The patient will be seen 2x/week for 4 weeks Short Term Goals: Pt will be I with HEP to promote self management of symptoms Pt will perform a squat with proper mechanics Senior Living Goals: Pt will achieve full strength of B quads to assist with prolonged walking and stair navigation Pt will ascend/descend 1 flight of stairs safely with reciprocal pattern and minimal to no pain or discomfort Pt will demonstrate ability to squat and pick up driver 10# object with proper mechanics and minimal to no discomfort Treatment Plan: Modalities to reduce pain, spasms and effusion. Manual therapy to restore motion and function. Therapeutic exercise to improve strength and flexibility. Neuromuscular re-education for posture and balance. Therapeutic activities to return to functional activities of daily living. Electronically signed by: Mey Rodriges, PT, DPT Please sign and return to therapist. Thank you for your referral.
--- NOTE | 2024-08-04 11:16 | MHC.PT.DC ---
[facility] [place] Office [place] Office [place] Office [address] [phone] F: [phone] F: [phone] F: [phone] F: [phone] Physical Therapy Discharge Report Diagnosis: Patellofemoral arthritis Degenerative arthritis of knee, bilateral Date of Surgery: n/a Date of Evaluation: 03/05/24 Date of Discharge: 08/04/24 Treatments to Date: 10 Cancellations to Date: No Shows to Date: Discharge Status: Achieved Goals Improved Function Discharge Summary: Pt was seen for skilled PT from 03/05/24-04/18/24. His last attended and scheduled appointment was 04/18/24. Per last note, he met all of his goals and had a significant improvement in LEFI outcome measure. He is being D/C from skilled PT Electronically signed by: Mey Rodriges, PT, DPT Please sign and return to therapist. Thank you for your referral.
== END 2024-08-04 11:16 | disposition home or self-care (01) ==
LOC: HO.PT 11:00
PROVIDERS: PCP Physician Assistant; Visit Provider Physician Assistant
DX: M17.0 Bilateral primary osteoarthritis of knee (principal)
CPT/HCPCS: 97110; 97112; 97161; 97530

== ENCOUNTER 2024-04-23 16:45 | Emergency (ER) | payer MEDICARE, MEDICAID, SELFPAY ==
--- NOTE | ~2024-04-23 | XR_ITS ---
EXAMINATION: XR SHOULDER, LEFT CLINICAL INFORMATION: Left shoulder and upper back pain COMPARISON: None available. TECHNIQUE: Four views of the left shoulder. FINDINGS: The bones and soft tissues are normal. No fracture. Glenohumeral and acromioclavicular alignment is anatomic with normal joint space. No abnormal soft tissue calcifications. XR/XR shoulder LT min 2V IMPRESSION: Normal left shoulder. Electronically signed by: Kate Mars MD 04/23/2024 08:02 PM EDT
--- NOTE | ~2024-04-23 | XR_ITS ---
EXAMINATION: XR CHEST CLINICAL INFORMATION: Weight loss, pain in 3 days COMPARISON: cxr on 01/28/17 TECHNIQUE: 2 views of the chest were obtained. FINDINGS: No significant abnormality is noted involving the heart, lungs, mediastinum, bony thorax or soft tissues. XR/XR chest 2V IMPRESSION: Unremarkable examination. Electronically signed by: Kate Mars MD 04/23/2024 08:03 PM EDT RP
[2024-04-23 16:51] VITALS: BP 169/79; PULSE 86; RESP 16; TEMP 36.8; O2SAT 97; BMI 27.2
--- NOTE | 2024-04-23 16:51 | ED_ITS ---
HPI - General Adult General Chief complaint: Neck Pain/Injury Stated complaint: l neck pain Time Seen by Provider: 04/23/24 20:40 Source: patient Limitations: no limitations History of Present Illness ED Provider: Amy Galvin PA-C HPI narrative: 63-year-old male with known arthritis presents with neck and left shoulder pain for weeks. Patient states he was diagnosed arthritis of his shoulder, neck and bilateral knees weeks ago. Patient has started physical therapy for the knees. He is pending physical therapy for his neck and shoulder. Patient states he has subsequently developed muscle spasms in the neck and across the upper back. Denies new trauma, new activity, fall, no redness or swelling of the joint. Denies paresthesia or weakness of the left upper extremity. Related Data Previous Rx's ?Medication ?Instructions ?Recorded artifi.tears(hypromellose)(PF) 0.3 1 drp ophthalmic (eye) Q4-6H PRN 09/06/22 % eye drops dry eye(s) 30 days #10 mL acetaminophen 300 mg-codeine 30 mg 1 tab PO Q8H PRN pain 7 days #21 12/26/22 tablet tabs allopurinol 300 mg tablet 300 mg PO DAILY #30 caps 02/04/24 atorvastatin 10 mg tablet 10 mg PO BEDTIME #30 tabs 02/04/24 fenofibrate 160 mg tablet 160 mg PO DAILY 30 days #30 tabs 02/04/24 enalapril maleate 10 mg tablet 10 mg PO DAILY 90 days #90 caps 03/21/24 levothyroxine 50 mcg tablet 50 mcg PO DAILY 30 days #30 tabs 03/21/24 methocarbamol 750 mg tablet 1,500 mg (2 x 750 mg) PO QID PRN 04/23/24 pain #30 tabs methylprednisolone 4 mg tablets in 4 mg PO DAILY #1 ea 04/23/24 a dose pack (Medrol (Justin)) Allergies Allergy/AdvReac Type Severity Reaction Status Date / Time lisinopril [LISINOPRIL] Allergy Unknown HIVES Verified 04/23/24 16:55 Review of Systems 2 Review of Systems: Yes all other systems are reviewed and are negative Constitutional: Constitutional: Denies fatigue and Denies fever(s) ENT: Reports neck pain Cardiovascular: Cardiovascular: Denies chest pain and Denies dyspnea Respiratory: Respiratory: Denies dyspnea Musculoskeletal: Musculoskeletal: Denies deformity, Reports arthralgias, Denies joint swelling, Reports neck pain, Denies numbness and Denies radiating pain into limb Neurologic: Denies numbness Endocrine: Endocrine: Denies fatigue [facility] Past Medical History Attestation statement: The following information was validated with the patient. Medical History Screening for prostate cancer Screening for diabetes mellitus Subclinical hypothyroidism Mixed hypercholesterolemia and hypertriglyceridemia Overweight (BMI 25.0-29.9) Alcohol abuse Margaret's disease Thyroid nodule Hypertriglyceridemia Surgical History History of colonoscopy History of surgery on wrist Hx of eye surgery Family History Family History Father Gout Mother Diabetes Social History Social History (Updated 03/12/24 @ 13:59 by Pravin Dupree PA-C) Household Members: None Housing: Apartment Alcohol intake: current Alcohol intake frequency: holidays/special occasions only Alcohol type: beer Patient Tobacco Use Status: Never used Tobacco Smoked in Last 30 Days: No e-Cigarette/Vaping Use: Never Used Use of substances other than those prescribed or required for medical reasons: No Advance Directives: No Advance Directives Information Provided: No service: No Current occupational status: retired and disabled Cognitive needs: No Hearing needs: No Vision needs: Yes (Pt wear reading glasses.) Physical Exam ED Vital Signs: Vital Signs - 24 hr 04/23/24 16:51 04/23/24 19:42 Temperature 98.3 F 97.6 F Pulse Rate 86 76 Respiratory Rate 16 18 Blood Pressure 169/79 H 133/78 Pulse Oximetry 97 99 Oxygen Delivery Method Room Air Room Air BMI result Body Mass Index 27.2 Const Other: Alert, overall well in appearance Orientation/consciousness: patient oriented x3 Resp Other: Nonlabored respiration Cardio Other: Normal peripheral perfusion Back/Spine/Pelvis Other: Palpable pain across left trapezius Skin Other: Warm dry no rash Neuro General: patient oriented x3, no focal motor deficits and CN's II-XI intact bilaterally Extrem Other: Patient can range the left shoulder, however it elicits discomfort superior across the trapezius muscle, pain also elicited with range of motion of the neck. No deformity, swelling or erythema noted over the left shoulder Psych Other: calm, cooperative Course Course Course Narrative: This is an RME: Additional HPI, ROS, PE not included below will be deferred to primary provider. RME assessment and note performed by: Yamileth Neely PA-C This is a 63-year-old male, with a history of Margaret's, hyperlipidemia, hypertension, and GERD, who presents emergency department with complaints of left sided neck pain and upper back pain. Patient states that he has been seen by his primary care physician and was referred to physical therapy. He wants a cortisone shot today. I advised to him that this is not something we would do in the emergency room. Upon my assessment, he does have supraclavicular swelling, nontender however prominent upon physical examination. He does report 20 lb weight loss over 6 months, however states that he gained 10 lbs. No profound night sweats. He is a nonsmoker. No history of cancer. No chest pain or shortness of breath. Plan: labs, xray, further ER eval needed Medical Decision Making Medical Decision Making MDM Narrative: 63-year-old male with known arthritis presents with neck and left shoulder pain for weeks. Patient states he was diagnosed arthritis of his shoulder, neck and bilateral knees weeks ago. Patient has started physical therapy for the knees. He is pending physical therapy for his neck and shoulder. Patient states he has subsequently developed muscle spasms in the neck and across the upper back. Denies new trauma, new activity, fall, no redness or swelling of the joint. Denies paresthesia or weakness of the left upper extremity. Problem: Known arthritis History: Per patient I have considered the following differential diagnoses: Fracture, dislocation, musculoskeletal strain, cervical radiculopathy, muscle spasm, septic arthritis Plan: Patient here due to onset of muscle spasm. There has been no new trauma or overuse injury the could have precipitated a fracture or dislocation. The patient is assessment began from triage, x-rays were repeated. They are unremarkable. The patient is not having radicular symptoms. He is neurovascularly intact. Thought about septic arthritis, however there was no effusion noted on imaging, he has retained range of motion of the joint, there was no overlying warmth or erythema. We will send with a steroid taper and a muscle relaxant. The patient has physical therapy pending in a week. I have independently reviewed the following tests: Labs: No leukocytosis, not anemic, no electrolyte abnormality X-ray shoulder : XR/XR shoulder LT min 2V IMPRESSION: Normal left shoulder. Electronically signed by: Kate Mars MD 04/23/2024 08:02 PM EDT RP CXR: XR/XR chest 2V IMPRESSION: Unremarkable examination. Electronically signed by: Kate Mars MD 04/23/2024 08:03 PM EDT RP Lab Data 04/23/24 17:23 04/23/24 17:23 Labs: Lab Results 04/23/24 Range/Units 17:23 WBC 10.0 (4.8-10.8) X10*3/uL RBC 4.27 L (4.60-5.80) X10*6/uL Hgb 13.8 L (14.0-18.0) g/dl Hct 39.3 L (42.0-52.0) % MCV 92.0 (80.0-98.0) fL MCH 32.3 (27.0-33.0) pg MCHC 35.1 (31.0-36.0) g/dl RDW 12.5 (11.0-16.0) % Plt Count 194 D (160-400) X10*3/uL MPV 9.3 L (9.4-12.4) fL Immature Gran % (Auto) 0.3 (0.0-0.4) % Neut % (Auto) 80.1 H (45-73) % Lymph % (Auto) 9.4 L (20-40) % Hinds % (Auto) 8.5 (2-11) % Eos % (Auto) 1.1 (0-4) % Baso % (Auto) 0.6 (0-2) % Lymph # (Auto) 0.9 L (1.2-4.9) X10*3/uL Hinds # (Auto) 0.9 (0.1-1.2) X10*3/uL Eos # (Auto) 0.1 (0.0-0.4) X10*3/uL Baso # (Auto) 0.1 (0.0-0.2) X10*3/uL Abs Immat Gran (auto) 0.03 (0.00-0.03) X10*3/uL Absolute Neuts (auto) 8.0 (2.0-8.3) x10*3/uL Absolute Nucleated RBC 0.000 (0.0-0.012) X10*3/uL Nucleated RBC % (auto) 0.0 (0.0-0.2) /100WBC Sodium 138 (135-145) mmol/L Potassium 3.9 (3.3-5.1) mmol/L Chloride 103 (96-108) mmol/L Carbon Dioxide 24 (22-29) mmol/L Anion Gap 15 (12-20) BUN 17 H (9-16) mg/dL Creatinine 1.08 (0.5-1.4) mg/dL Estim Creat Clear Calc 65.3 Estimated GFR > 60 Random Glucose 107 (60-115) mg/dL Calcium 10.2 (8.4-10.2) mg/dL Total Bilirubin 1.2 H (0.0-1.0) mg/dL AST 207 H (5-37) U/L ALT 103 H (0-40) U/L Alkaline Phosphatase 104 (39-117) U/L Total Protein 7.8 (6.5-8.0) g/dL Albumin 4.3 (3.5-5.0) g/dL Discharge Plan Discharge Clinical Impression: Osteoarthritis, Muscle spasm of left shoulder Patient Disposition: Home, Self-Care Instructions: Osteoarthritis (ED), Muscle Spasm (ED) Additional Instructions: All of your labs were normal, the imaging did not reveal any additional acute process. You are being treated for your arthritis with associated muscle spasm. See home care instructions. Take the steroid taper as directed, this is an anti-inflammatory. Do not use any additional anti-inflammatory such as ibuprofen while taking the steroid taper. Take in the morning as it can hinder sleep. Use the muscle relaxant, the methocarbamol as needed for your pain. To note this medication will cause drowsiness, do not drive or operate machinery while taking the medication. Keep your pending physical therapy appointment. Follow up with your primary care provider as needed. Prescriptions: New methylprednisolone [Medrol (Justin)] 4 mg tablets,dose pack 4 mg PO DAILY Qty: 1 0RF Rx Instructions: Take daily in the morning per package instructions methocarbamol 750 mg tablet 1,500 mg PO QID PRN (Reason: pain) Qty: 30 0RF No Action acetaminophen-codeine 300-30 mg tablet 1 tab PO Q8H PRN (Reason: pain) 7 Days Qty: 21 1RF fenofibrate 160 mg tablet 160 mg PO DAILY 30 Days Qty: 30 0RF atorvastatin 10 mg tablet 10 mg PO BEDTIME Qty: 30 0RF allopurinol 300 mg tablet 300 mg PO DAILY Qty: 30 0RF enalapril maleate 10 mg tablet 10 mg PO DAILY 90 Days Qty: 90 1RF levothyroxine 50 mcg tablet 50 mcg PO DAILY 30 Days Qty: 30 0RF artifi.tears(hypromellose)(PF) 0.3 % drops 1 drp ophthalmic (eye) Q4-6H PRN (Reason: dry eye(s)) 30 Days Qty: 10 3RF Print Language: Niuean
[2024-04-23 17:26] LABS: MANUAL DIFF FLAG NO
[2024-04-23 17:27] LABS: Basophils Absolute Auto 0.1 X10*3/uL (0.0-0.2); Basophils Percent Auto 0.6 % (0-2); Eosinophils Absolute Auto 0.1 X10*3/uL (0.0-0.4); Eosinophils Percent Auto 1.1 % (0-4); Hematocrit 39.3 % (42.0-52.0); Hemoglobin 13.8 g/dl (14.0-18.0); Imm Gran Abs Auto 0.03 X10*3/uL (0.00-0.03); Imm Gran Pct Auto 0.3 % (0.0-0.4); Lymphocytes Absolute Auto 0.9 X10*3/uL (1.2-4.9); Lymphocytes Percent Auto 9.4 % (20-40); Mean Corpuscular HGB Conc 35.1 g/dl (31.0-36.0); Mean Corpuscular Hemoglobin 32.3 pg (27.0-33.0); Mean Platelet Volume 9.3 fL (9.4-12.4); Monocytes Absolute Auto 0.9 X10*3/uL (0.1-1.2); Monocytes Percent Auto 8.5 % (2-11); Neutrophils Percent Auto 80.1 % (45-73); Platelet Count 194 X10*3/uL (160-400); Red Blood Count 4.27 X10*6/uL (4.60-5.80); Red Cell Distribution Width 12.5 % (11.0-16.0)
[2024-04-23 17:44] LABS: Alanine Aminotransferase 103 U/L (0-40); Albumin Level 4.3 g/dL (3.5-5.0); Alkaline Phosphatase 104 U/L (39-117); Anion Gap 15 (12-20); Aspartate Amino Transferase 207 U/L (5-37); Bilirubin Total 1.2 mg/dL (0.0-1.0); Blood Urea Nitrogen 17 mg/dL (9-16); Calcium 10.2 mg/dL (8.4-10.2); Carbon Dioxide 24 mmol/L (22-29); Chloride 103 mmol/L (96-108); Creatinine Clr Calc Pharmacy 65.3; Estimated Glomerular Filt Rate > 60; Glucose Random 107 mg/dL (60-115); Potassium 3.9 mmol/L (3.3-5.1); Sodium 138 mmol/L (135-145); Total Protein 7.8 g/dL (6.5-8.0)
[2024-04-23 19:42] VITALS: BP 133/78; PULSE 76; RESP 18; TEMP 36.4; O2SAT 99
--- NOTE | 2024-04-23 19:56 | PC.NURSE ---
provided heat pack for shoulder per request
[2024-04-23 21:54] VITALS: BP 140/66; PULSE 73; RESP 16; TEMP 36.5; O2SAT 98
[2024-04-23] MEDS: methocarbamoL 750 MG TABLET 1500 MG PO (21:54)
--- NOTE | 2024-04-23 21:56 | MHC.EDTECH ---
Applied a sling to patients left arm per providers order,vitals taken,patient is being discharged at this time,
[2024-04-23 22:00] VITALS: BP 140/66; PULSE 73; RESP 16; TEMP 36.5; O2SAT 98
== END 2024-04-23 22:01 | disposition home or self-care (01) ==
PROVIDERS: Physician Assistant Medical; Emergency Provider Student in an Organized Health Care Education/Training Program; PCP Physician Assistant
DX: M47.812 Spondylosis without myelopathy or radiculopathy, cervical region (principal); M62.838 Other muscle spasm; I10 Essential (primary) hypertension; E78.2 Mixed hyperlipidemia
CPT/HCPCS: 36415; 71046; 73030; 80053; 85025; 99283; 99284

== ENCOUNTER 2024-05-16 10:09 | Outpatient (AMB) | payer MEDICARE, MEDICAID, SELFPAY ==
--- NOTE | 2024-05-16 10:13 | A.OFFVIS_ITS ---
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 Patient reports his pain has been present for over 5 months. Denies injury. He was recently seen at [facility] ER where xrays were taken and referred to orthopedics. He has sharp pain in the posterior aspect of neck with ROM. No previous tx. 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 He denies any injury in the past. He was seen at ER where x-rays were performed and he was referred to our office. He currently states he has sharp chronic pain at the posterior aspect of his neck that comes with ROM. He denies any shoulder pain. He has been trying heat without relief. He has not had any previous treatment. [facility] Medical History Screening for prostate cancer Screening for diabetes mellitus Subclinical hypothyroidism Mixed hypercholesterolemia and hypertriglyceridemia Overweight (BMI 25.0-29.9) Alcohol abuse Margaret's disease Thyroid nodule Hypertriglyceridemia Surgical History History of colonoscopy History of surgery on wrist Hx of eye surgery Family History Father Gout Mother Diabetes Social History (Updated 05/16/24 @ 10:20 by RHONDA Ruiz) Household Members: None Housing: Apartment Alcohol intake: current Alcohol intake frequency: holidays/special occasions only Alcohol type: beer Patient Tobacco Use Status: Never used Tobacco e-Cigarette/Vaping Use: Never Used service: No Current occupational status: retired and disabled Current occupation: right hand dominant Cognitive needs: No Hearing needs: No Vision needs: Yes (Pt wear reading glasses.) Female Reproductive History Other: XR cervical spine 4V IMPRESSION: 1. No acute abnormality. 2. Mild degenerative spondylosis of cervical spine. Review of Systems Const All systems reviewed & are unremarkable except as noted in HPI and below Physical Exam Const General: cooperative, healthy appearing, comfortable, no acute distress, well developed and alert Orientation/consciousness: patient oriented x3 HEENT Head: Yes normal to inspection, Yes normocephalic and Yes atraumatic Eyes General: appearance normal, both eyes and all related structures Resp Effort & Inspection: normal respiratory effort and able to speak in complete sentences Cardio Rate: regular rate Peripheral pulses: Peripheral pulses 2+ throughout GI Palpation (GI): Soft to palpation Skin Lesions: no lesions Rashes: no rashes Neuro General: patient oriented x3 Extrem Other: Left shoulder: Full ROM in all planes without pain. No tenderness to palpation over the AC joint or proximal biceps. He has significant discomfort in the trapezium muscles which extends onto the left side of the neck. He has pain along the left side of the neck right right rotation and pain along the left side of the neck with bringing the chin to the chest. No pain with neck extension. He has 5/5 RTC strength. ?NVI. Results Reviewed Results Reviewed: XR cervical spine 4V IMPRESSION: 1. No acute abnormality. 2. Mild degenerative spondylosis of cervical spine. Assessment & Plan Assessment & Plan (1) Cervical spine pain: Code(s): M54.2 - Cervicalgia Category: Medical (2) Strain of right trapezius muscle: Code(s): S46.811A - Strain of other muscles, fascia and tendons at shoulder and upper arm level, right arm, initial encounter Category: Medical (3) Scapular dyskinesis: Code(s): G25.89 - Other specified extrapyramidal and movement disorders Category: Medical Plan A referral was placed in physical therapy to work on periscapular and RTC strengthening. I also recommend he does cervical stabilization exercises. I discussed at length that physical therapy may be beneficial with helping to provide him some more ROM and stabilization along the shoulder girdle as he may be overcompensating, causing him pain that extends into the neck. I sent a prescription of Celebrex to take twice a day for 2 weeks. I also encouraged him to perform icing as he has been trying heat without relief. He will return in 4- [address] Flores to further evaluate his neck if he has discomfort. Medications: New celecoxib (Celebrex) 200 mg PO BID 60 caps 3RF 30 days Patient Instructions: Scribed for Shanta Chávez PA-C, by Ming Worthington medical records auditor, on 05/16/2024 at 10:15 AM EST.? I, Shanta Chávez PA-C, have personally reviewed and agree with the information entered by the scribe. Coding Level of Care Code Est Pt Level 3 (64786) Complex EM visit Add On G2211 Diagnoses Cervical spine pain M54.2 Strain of right trapezius muscle S46.811A Scapular dyskinesis G25.89
== END 2024-05-16 10:39 | disposition home or self-care (01) ==
PROVIDERS: PCP Physician Assistant; Visit Provider Physician Assistant
DX: M54.2 Cervicalgia (principal); S46.811A Strain of other muscles, fascia and tendons at shoulder and upper arm level, right arm, initial encounter; G25.89 Other specified extrapyramidal and movement disorders
CPT/HCPCS: 99213; G2211

== ENCOUNTER → 2024-05-16 10:09 | Outpatient (BNVA) | payer MEDICARE, MEDICAID, SELFPAY | PROVIDERS: PCP Physician Assistant; Visit Provider Physician Assistant | DX: S46.811A Strain of other muscles, fascia and tendons at shoulder and upper arm level, right arm, initial encounter (principal); M54.2 Cervicalgia; G25.89 Other specified extrapyramidal and movement disorders | CPT/HCPCS: 99212 ==

== ENCOUNTER 2024-07-04 10:58 | Outpatient (RCR) | payer MEDICARE, MEDICAID, SELFPAY ==
--- NOTE | 2024-06-19 17:46 | MHC.PT.EP ---
[facility] [place] Office [place] Office [place] Office [address] [place] [phone] F: [phone] F: [phone] F: [phone] F: [phone] Physical Therapy Plan of Care Date of Evaluation: 06/19/24 Date of Surgery: Diagnosis: Strain of R upper trapezius; cervical spine. Assessment: Pt is a 63 y/o male referred to PT for eval and treat of Strain of R upper trapezius of cervical spine (Pt reports is actually his L) which is resulting in decreased tolerance for turning his head L > R, reading for duration, driving, as well as disturbed sleep secondary to decreased cervical ROM and strength, decreased posture, unsupported cervical during sleep, increased accessory tissue tension, and pain. Pt is deemed an appropriate candidate to receive skilled PT services to address their physical impairments in order to improve their functional ability. Frequency and Duration: The patient will be seen 2x / wk x 3 wks. Short Term Goals: Initiate home program. Improve baseline pain to < /510; initial 8/10. Fresh Food Manager Goals: I with home program. Pt will be able to drive with managed Sx. Pt will demonstrate symmetrical cervical rotation. Pt will improve NDI outcome measure by at least Treatment Plan: Modalities to reduce pain, spasms and effusion. Manual therapy to restore motion and function. Therapeutic exercise to improve strength and flexibility. Neuromuscular re-education for posture and balance. Therapeutic activities to return to functional activities of daily living. Electronically signed by: Sina Goss PT. Please sign and return to therapist. Thank you for your referral.
--- NOTE | 2024-08-12 12:58 | MHC.PT.DC ---
[facility] [place] Office [place] Office [place] Office [address] [phone] F: [phone] F: [phone] F: [phone] F: [phone] Physical Therapy Discharge Report Diagnosis: Strain of R upper trapezius; cervical spine. Date of Surgery: Date of Evaluation: 06/19/24 Date of Discharge: 08/12/24 Treatments to Date: 3 Cancellations to Date: 2 No Shows to Date: 1 Discharge Status: Patient Elected to Stop Discharge Summary: . Electronically signed by: Sina Goss PT. Please sign and return to therapist. Thank you for your referral.
== END 2024-08-12 12:58 | disposition home or self-care (01) ==
LOC: HO.PT 10:58
PROVIDERS: PCP Physician Assistant; Visit Provider Physician Assistant
DX: G25.89 Other specified extrapyramidal and movement disorders (principal); M54.2 Cervicalgia; S46.811A Strain of other muscles, fascia and tendons at shoulder and upper arm level, right arm, initial encounter
CPT/HCPCS: 97110; 97140; 97161

== ENCOUNTER 2024-08-29 11:01 | Outpatient (AMB) | payer MEDICARE, MEDICAID, SELFPAY ==
[2024-08-29 11:07] VITALS: BMI 27.2
--- NOTE | 2024-08-29 11:07 | MHC.OFFVIS ---
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 Patient states pain began about 5 months ago. Denies numbness or tingling. Reports sporadic throbbing at the base of the left shoulder. Patient has tried PT. He also took Methocarbamol and Medrol-Pack but ran out. He hopes to get a refill of Methocarbamol today. Denies any injuries or surgeries to the neck or shoulder. Patient referred by ERIC Aguila. Allergies lisinopril [LISINOPRIL] Allergy (Unknown, Verified 08/29/24 11:10) HIVES HPI Comments Details: Patient states pain began about 5 months ago. Denies numbness or tingling. Reports sporadic throbbing at the base of the left shoulder. Points to left upper trapezius. Good ROM on shoulder. Feels it when he looks to left side. Does not radiate to hands. Patient has tried PT, 1 month ago, 5 sessions, finished 2 weeks ago. He also took Methocarbamol and Medrol-Pack. Denies any injuries or surgeries to the neck or shoulder. [facility] Medical History Screening for prostate cancer Screening for diabetes mellitus Subclinical hypothyroidism Mixed hypercholesterolemia and hypertriglyceridemia Overweight (BMI 25.0-29.9) Alcohol abuse Margaret's disease Thyroid nodule Hypertriglyceridemia Surgical History History of colonoscopy History of surgery on wrist Hx of eye surgery Family History Father Gout Mother Diabetes Social History (Updated 05/16/24 @ 10:20 by RHONDA Ruiz) Household Members: None Housing: Apartment Alcohol intake: current Alcohol intake frequency: holidays/special occasions only Alcohol type: beer Patient Tobacco Use Status: Never used Tobacco e-Cigarette/Vaping Use: Never Used service: No Current occupational status: retired and disabled Current occupation: right hand dominant Cognitive needs: No Hearing needs: No Vision needs: Yes (Pt wear reading glasses.) Review of Systems Const All systems reviewed & are unremarkable except as noted in HPI and below Physical Exam Vital Signs: BMI result Body Mass Index 27.2 Constitutional: Patient appears to be in no acute distress, well nourished and well developed. Patient was appropriately conversant and oriented. Good historian. MSK: Inspection reveals appropriate head and neck positioning. Identified 1 trigger point on left upper trapezius that reproduces symptoms. Cervical ROM was full. Spurling's sign negative. Bilateral shoulder, elbow and wrist ROM WNL. No ligamentous laxity or crepitance. No increased effusion. Negative speed's test. Negative empty can sign. Strength is 5/5 in all muscle groups tested. No increased tone noted. Neurological: Neurologic examination of the upper and lower extremities was nonfocal with intact sensation, muscle stretch reflexes and without focal motor deficits . Guerrero?s negative bilaterally. Babinski was down going bilaterally. Clonus was negative. Gait is non-antalgic without loss of balance. Results Reviewed Results Reviewed: Ordering Physician: Yamileth Neely Date of Service: 04/23/24 Procedure(s): XR shoulder LT min 2V Accession Number(s): [id number] cc: Pravin Dupree PA-C; Yamileth Neely~ EXAMINATION: XR SHOULDER, LEFT CLINICAL INFORMATION: Left shoulder and upper back pain COMPARISON: None available. TECHNIQUE: Four views of the left shoulder. FINDINGS: The bones and soft tissues are normal. No fracture. Glenohumeral and acromioclavicular alignment is anatomic with normal joint space. No abnormal soft tissue calcifications. XR/XR shoulder LT min 2V IMPRESSION: Normal left shoulder. Electronically signed by: Kate Mars MD 04/23/2024 08:02 PM EDT RP Ordering Physician: Pravin Dupree PA-C Date of Service: 03/18/24 Procedure(s): XR cervical spine 4V Accession Number(s): [id number] cc: Pravin Dupree PA-C~ EXAMINATION: XR CERVICAL SPINE CLINICAL INFORMATION: Neck pain COMPARISON: None available. TECHNIQUE: 5 views of cervical spine including bilateral oblique views. FINDINGS: Cervical vertebrae have normal height and alignment. No fracture or bone destruction. Mild disc height narrowing and small vertebral endplate spurs C5-C6. Neural foramina are open bilaterally. Facet joints are normal. Carotid arteries vascular calcifications bilaterally. XR/XR cervical spine 4V IMPRESSION: 1. No acute abnormality. 2. Mild degenerative spondylosis of cervical spine. Electronically signed by: Ramon Kee MD 03/31/2024 03:53 PM EDT RP I reviewed records from the following: Ortho Assessment & Plan Assessment & Plan (1) Myofascial pain: Code(s): M79.18 - Myalgia, other site Category: Medical Plan Trigger point identified on left upper trapezius reproducing his symptoms. No signs of cervical spine or shoulder pathology on exam today. He has finished physical therapy. I renewed methocarbamol prescription, only to take 750 mg b.i.d. as needed. Instructions and side effects discussed. We can schedule trigger point injections, series of 3, patient eager to proceed. Assessment and plan discussed with patient, and patient was agreeable. All questions were answered thoroughly. Rosemary Sprague MD, LIANNE Board Certified, [place] [employer] and Rehabilitation (ABPMR) Board Certified, [place] Board [employer] Electrodiagnostic Medicine (ABEM) Medications: Changed From methocarbamol 1,500 mg (2 x 750 mg) PO QID PRN 30 tabs 2RF pain To methocarbamol 750 mg PO BID PRN 30 tabs 1RF pain Coding Level of Care Code New Pt Level 4 (29265) Diagnoses Myofascial pain M79.18
== END 2024-08-29 11:39 | disposition home or self-care (01) ==
PROVIDERS: PCP Physician Assistant; Visit Provider Physical Medicine & Rehabilitation
DX: M79.18 Myalgia, other site (principal)
CPT/HCPCS: 99204

== ENCOUNTER → 2024-08-29 11:01 | Outpatient (BNVA) | payer MEDICARE, MEDICAID, SELFPAY | PROVIDERS: PCP Physician Assistant; Visit Provider Physical Medicine & Rehabilitation | DX: M79.18 Myalgia, other site (principal) | CPT/HCPCS: 99202 ==

== ENCOUNTER 2024-10-10 09:59 | Outpatient (AMB) | payer MEDICARE, MEDICAID, SELFPAY ==
--- NOTE | 2024-10-10 10:09 | MHC.OFFVIS ---
Vital Signs 10/10/24 10:10 Height 5 ft 4 in Weight 158 lb BMI 27.1 Intake Visit Reasons: INJ-Trigger point #1 Intake Note: Aidan 64 yr old male presents today for his left upper trapezius trigger point injection #1. Allergies lisinopril [LISINOPRIL] Allergy (Unknown, Verified 10/10/24 10:11) HIVES Medication List - Last Reconciled 10/10/24 by Rosemary Sprague MD acetaminophen-codeine 300-30 mg 1 tab PO Q8H PRN 7 days allopurinol 300 mg PO DAILY atorvastatin 10 mg PO BEDTIME enalapril maleate 10 mg PO DAILY 90 days fenofibrate 160 mg PO DAILY 30 days levothyroxine 50 mcg PO DAILY 30 days methocarbamol 750 mg PO BID PRN methylprednisolone (Medrol (Justin)) 4 mg PO DAILY PFSH Medical History Screening for prostate cancer Screening for diabetes mellitus Subclinical hypothyroidism Mixed hypercholesterolemia and hypertriglyceridemia Overweight (BMI 25.0-29.9) Alcohol abuse Margaret's disease Thyroid nodule Hypertriglyceridemia Surgical History History of colonoscopy History of surgery on wrist Hx of eye surgery Family History Father Gout Mother Diabetes Social History Household Members: None Housing: Apartment Alcohol intake: current Alcohol intake frequency: holidays/special occasions only Alcohol type: beer Patient Tobacco Use Status: Never used Tobacco e-Cigarette/Vaping Use: Never Used service: No Current occupational status: retired and disabled Current occupation: right hand dominant Cognitive needs: No Hearing needs: No Vision needs: Yes (Pt wear reading glasses.) Physical Exam Vital Signs: BMI result Body Mass Index 27.1 Office Procedures Therapeutic Injection Therapeutic Injection Details: Trigger point injection, left upper trapezius. Consent obtained. One trigger point palpated on left upper trapezius. Needling performed with gauge 27 needle, subsequently injecting 1 ml of 2% Lidocaine. Patient tolerated procedure well. Post-injection instructions given. 24876-[id number] Point Injection 1 or 2 sites All charges added?: Procedure code (CPT) selection complete Assessment & Plan Assessment & Plan (1) Myofascial pain: Code(s): M79.18 - Myalgia, other site Category: Medical Plan Tolerated procedure well. Next injection next week. Assessment and plan discussed with patient, and patient was agreeable. All questions were answered thoroughly. Rosemary Sprague MD, LIANNE Board Certified, [place] Board [employer] and Rehabilitation (ABPMR) Board Certified, [place] [employer] Electro[employer]ostic [employer] (ABEM) Orders: Orders AMB Trigger Point Injection Today M79.18 - Myalgia, other site Coding Level of Care Code Procedure Only Diagnoses Myofascial pain M79.18 CPT Codes Therapeutic Injection - Ther Injection 1: 78184-Wjsjkvi Point Injection 1 or 2 sites ([id number])
[2024-10-10 10:10] VITALS: BMI 27.1
== END 2024-10-10 10:11 | disposition home or self-care (01) ==
LOC: HO.HOS 10:00
PROVIDERS: PCP Physician Assistant; Visit Provider Physical Medicine & Rehabilitation
DX: M79.18 Myalgia, other site (principal); M54.2 Cervicalgia
CPT/HCPCS: 20552

== ENCOUNTER → 2024-10-10 09:59 | Outpatient (BNVA) | payer MEDICARE, MEDICAID, SELFPAY | PROVIDERS: PCP Physician Assistant; Visit Provider Physical Medicine & Rehabilitation | DX: M79.18 Myalgia, other site (principal) | CPT/HCPCS: 20552; J2003 ==

== ENCOUNTER 2024-10-16 10:57 | Outpatient (AMB) | payer MEDICARE, MEDICAID, SELFPAY ==
[2024-10-16 11:03] VITALS: BMI 27.1
--- NOTE | 2024-10-16 11:03 | A.OFFVIS_ITS ---
Vital Signs 10/16/24 11:03 Height 5 ft 4 in Weight 158 lb BMI 27.1 Intake Visit Reasons: INJ-Trigger point #2 Intake Note: Aidan 64 yr old male presents today for his trigger injection #2. Allergies lisinopril [LISINOPRIL] Allergy (Unknown, Verified 10/16/24 11:14) HIVES Medication List - Last Reconciled 10/16/24 by Rosemary Sprague MD acetaminophen-codeine 300-30 mg 1 tab PO Q8H PRN 7 days allopurinol 300 mg PO DAILY atorvastatin 10 mg PO BEDTIME enalapril maleate 10 mg PO DAILY 90 days fenofibrate 160 mg PO DAILY 30 days levothyroxine 50 mcg PO DAILY 30 days methocarbamol 750 mg PO BID PRN methylprednisolone (Medrol (Justin)) 4 mg PO DAILY HPI Comments Details: Last injection had some effect on the 2nd day after, but by Sunday started having the same pain again. [facility] Medical History Screening for prostate cancer Screening for diabetes mellitus Subclinical hypothyroidism Mixed hypercholesterolemia and hypertriglyceridemia Overweight (BMI 25.0-29.9) Alcohol abuse Margaret's disease Thyroid nodule Hypertriglyceridemia Surgical History History of colonoscopy History of surgery on wrist Hx of eye surgery Family History Father Gout Mother Diabetes Social History Household Members: None Housing: Apartment Alcohol intake: current Alcohol intake frequency: holidays/special occasions only Alcohol type: beer Patient Tobacco Use Status: Never used Tobacco e-Cigarette/Vaping Use: Never Used service: No Current occupational status: retired and disabled Current occupation: right hand dominant Cognitive needs: No Hearing needs: No Vision needs: Yes (Pt wear reading glasses.) Physical Exam Vital Signs: BMI result Body Mass Index 27.1 Palpable tender taut band on left upper trapezius. Office Procedures Therapeutic Injection Therapeutic Injection Details: Trigger point injection, on taut band on left upper trapezius.. Consent obtained. Needling performed with gauge 27 needle, subsequently injecting 1 ml of 2% Lidocaine on each side, total 2 mL. Patient tolerated procedure well. Post-injection instructions given. [id number]-[id number] Point Injection 1 or 2 sites All charges added?: Procedure code (CPT) selection complete Assessment & Plan Assessment & Plan (1) Myofascial pain: Code(s): M79.18 - Myalgia, other site Category: Medical Plan Tolerated procedure well. Next injection to be scheduled depending on patient's availability and improvement. Assessment and plan discussed with patient, and patient was agreeable. All questions were answered thoroughly. Roesmary pSrague MD, LIANNE Board Certified, [place] [employer] and [employer] (ABPMR) Board Certified, [place] [employer] Electro[employer]ostic [employer] (ABEM) Orders: Orders AMB Trigger Point Injection Today M79.18 - Myalgia, other site Coding Level of Care Code Procedure Only Diagnoses Myofascial pain M79.18 CPT Codes Therapeutic Injection - Ther Injection 1: 46227-Xlkyoxc Point Injection 1 or 2 sites ([id number])
== END 2024-10-16 11:17 | disposition home or self-care (01) ==
LOC: HO.HOS 10:57
PROVIDERS: PCP Physician Assistant; Visit Provider Physical Medicine & Rehabilitation
DX: M54.2 Cervicalgia (principal); M79.18 Myalgia, other site
CPT/HCPCS: 20552

== ENCOUNTER → 2024-10-16 10:57 | Outpatient (BNVA) | payer MEDICARE, MEDICAID, SELFPAY | PROVIDERS: PCP Physician Assistant; Visit Provider Physical Medicine & Rehabilitation | DX: M79.18 Myalgia, other site (principal) | CPT/HCPCS: 20552; J2003 ==

== ENCOUNTER 2024-11-05 16:01 | Outpatient (AMB) | payer MEDICARE, MEDICAID, SELFPAY ==
[2024-11-05 16:07] VITALS: BP 144/70; PULSE 78; TEMP 36.2; O2SAT 99; BMI 26.3
--- NOTE | 2024-11-05 16:07 | MHC.PC.OV ---
Vital Signs 11/05/24 16:07 Height 5 ft 4 in Weight 153 lb 6 oz BMI 26.3 BP 144/70 H Blood Pressure Location Lt brachial Position Sitting Pulse 78 Pulse Source Pulse Oximeter Temp 97.1 F Temp Source Temporal Artery Scan Pulse Oximetry (%) 99 Oxygen Delivery Method Room Air Intake Visit Reasons: H/A's, dizziness/hearing loss in his right ear. 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 Accompanied by: Self / Same As Patient Allergies lisinopril [LISINOPRIL] Allergy (Unknown, Verified 11/05/24 16:09) HIVES Medication List - Last Reconciled 11/05/24 by Pravin Dupree PA-C acetaminophen-codeine 300-30 mg 1 tab PO Q8H PRN 7 days allopurinol 300 mg PO DAILY atorvastatin 10 mg PO BEDTIME enalapril maleate 10 mg PO DAILY 90 days fenofibrate 160 mg PO DAILY 30 days levothyroxine 50 mcg PO DAILY 30 days methocarbamol 750 mg PO BID PRN methylprednisolone (Medrol (Justin)) 4 mg PO DAILY Tobacco use date assessed: 11/05/24 Dental Screening Dental Screen Date: 11/05/24 Did you have a dental visit in the last 12 months?: Yes Did you have a dental problem in the last 6 months where you did not have access to dental care?: No Was dental information given to patient?: Patient has dentist HPI H/A's, dizziness/hearing loss in his right ear. HPI Details The patient is a 64-year-old male presenting with acute dizziness, pressure sensation, and hearing loss in the right ear. His symptoms commenced approximately two weeks ago with a sudden onset of dizziness upon waking and complete hearing loss in the right ear, described as a mumbling sensation. A persistent sensation of pressure, especially with positional changes or laying down, exacerbates the dizziness. Home remedies have been ineffective, and symptoms have worsened over time. He has undergone vertigo tests with normal vestibular results in the past and reports a new onset of disorientation alongside reduced appetite and increased thirst. The right ear shows a white area behind the eardrum, potentially indicating fluid. The patient expresses the severity of the symptoms and is considering emergency evaluation given the progressive nature of his condition. [facility] Medical History Screening for prostate cancer Screening for diabetes mellitus Subclinical hypothyroidism Mixed hypercholesterolemia and hypertriglyceridemia Overweight (BMI 25.0-29.9) Alcohol abuse Margaret's disease Thyroid nodule Hypertriglyceridemia Surgical History History of colonoscopy History of surgery on wrist Hx of eye surgery Family History Father Gout Mother Diabetes Social History Household Members: None Housing: Apartment Alcohol intake: current Alcohol intake frequency: holidays/special occasions only Alcohol type: beer Patient Tobacco Use Status: Never used Tobacco e-Cigarette/Vaping Use: Never Used service: No Current occupational status: retired and disabled Current occupation: right hand dominant Cognitive needs: No Hearing needs: No Vision needs: Yes (Pt wear reading glasses.) Questionnaire PHQ-9 Over the last 2 weeks, how often have you been bothered by any of the following problems? 1. Little interest or pleasure in doing things: not at all 2. Feeling down, depressed, or hopeless: not at all 3. Trouble falling or staying asleep, or sleeping too much: not at all 4. Feeling tired or having little energy: not at all 5. Poor appetite or overeating: not at all 6. Feeling bad about yourself - or that you are a failure or have let yourself or your family down: not at all 7. Trouble concentrating on things, such as reading the newspaper or watching television: not at all 8. Moving or speaking so slowly that other people could have noticed. Or the opposite - being so fidgety or restless that you have been moving around a lot more than usual: not at all 9. Thoughts that you would be better off or of hurting yourself in some way: not at all Total score: 0 Depression Screening Interpretation: Negative Depression Screening Done: Yes 89044 - PHQ-9 Billing: Yes Source: Developed by Drs. Edson Lemons, Ellie Dowd, Ba Ibarra and colleagues, with an educational malcolm from [employer]. Thrive Questionnaire Date Thrive assessed: 11/05/24 I am a: Patient What is your living situation today?: I have a steady place to live Within the past 12 months, did the food you bought not last and you didn't have the money to get more?: Never true Within the past 12 months, did you worry whether your food would run out before you got money to buy more?: Never true Do you have trouble paying for medicines?: No Do you have trouble getting transportation to medical appointments?: No Do you have trouble paying your heating and electricity bill?: No Do you have trouble taking care of your child, family member or friend?: No Do you have trouble with day-to-day activities such as bathing, preparing meals, shopping, managing finances, etc.?: No Are you currently unemployed and looking for a job?: No Are you interested in more education?: No Please select the resources that you would like help with: None Currently or been in a relationship where the following occur: No concerns reported THRIVE Score: 0 AUDIT C Alcohol Use Questionnaire (AUDIT-C) 1. How often do you have a drink containing alcohol?: 2-3 times a week 2. How many drinks containing alcohol do you have on a typical day when you are drinking?: 3 or 4 (beer during the weekend and hard liquor on holiday.) 3. How often do you have six or more drinks on one occasion?: Monthly Total Score: 6 MADHURI-7 AMB Questionnaire MADHURI-7 Date MADHURI - 7 assessed: 11/05/24 Feeling nervous, anxious, or on edge: 0 = Not at all Not being able to stop or control worryin = Not at all Worrying too much about different things: 0 = Not at all Trouble relaxin = Not at all Being so restless that it is hard to sit still: 0 = Not at all Becoming easily annoyed or irritable: 0 = Not at all Feeling afraid as if something awful might happen: 0 = Not at all Total MADHURI-7 score (0-4 normal; 5-9 mild; 10-14 moderate; 15-21 severe): 0 Source: Developed by Drs. Edson Lemons, Ellie Dowd, Ba Ibarra and colleagues, with an educational malcolm from [employer]. MADHURI-7 Assessment Billing MADHURI-7 Assessment Tool: MADHURI-7 Assessment 20227 Review of Systems Const Reports fatigue, Denies headache(s), Reports lethargy, Reports malaise and Reports poor appetite Eyes Denies loss of vision ENT Reports vertigo, Reports dizziness, Denies headache(s) and Denies sore throat Card Denies chest pain, Denies leg edema and Denies lightheadedness Resp Denies cough, Denies hemoptysis and Denies wheezing GI Denies abdominal pain, Denies melena, Denies constipation, Denies diarrhea and Denies vomiting Denies dysuria, Denies urinary frequency and Denies urinary urgency Musc Denies arthralgias, Denies joint swelling, Denies numbness and Denies tingling Neuro Denies Abnormal speech present, Denies behavioral changes, Reports vertigo, Reports dizziness, Denies headache(s), Denies loss of vision, Denies memory loss, Denies numbness and Denies tingling Psych Denies anxiety, Denies behavioral changes, Denies depression, Denies memory loss and Denies panic attacks Endo Reports fatigue Arsen/Lymph Denies easy bleeding and Denies easy bruising Aller/Immun Denies wheezing Physical exam (Primary Care) Vital Signs: Last Vital Signs Temp 97.1 F 11/05/24 16:07 Pulse 78 11/05/24 16:07 BP 144/70 H 11/05/24 16:07 Pulse Ox 99 11/05/24 16:07 Oxygen Delivery Method Room Air 11/05/24 16:07 BMI result Body Mass Index 26.3 Tobacco/Smoking Status: Tobacco use Status Tobacco use date assessed 11/05/24 11/05/24 16:09 Patient Tobacco Use Status Never used Tobacco 11/05/24 16:09 e-Cigarette/Vaping Use Never Used 11/05/24 16:09 PHQ-9: PHQ-9 Score PHQ-9: Total score 0 11/05/24 16:09 Depression Screening Interpretation: Negative Thrive Assessment: Date of Thrive Assessment Date Thrive assessed 11/05/24 11/05/24 16:09 Currently or been in a relationship where the following occur: No concerns reported Const General: healthy appearing, no acute distress, alert and awake Nutritional Appearance: well nourished Orientation/consciousness: oriented to person, oriented to place and oriented to time HENMT Other: INCREASED DIZZINESS WHILE LYING SUPINE TURNING HIS HEAD TO THE LEFT. SOME INCREASED DIZZINESS WHEN GOING FROM SUPINE TO SITTING POSITION WELL. NO NOTABLE NYSTAGMUS Ears: TM's normal bilaterally General nose exam: Normal nasal mucous membranes and turbinates present Eyes Conjunctivae: conjunctivae normal Sclerae: sclerae normal Pupils: Equal, round and reactive pupils present Neck Neck: Yes no lymphadenopathy and Yes no JVD Thyroid: Thyroid normal Carotids: no bruits Resp Effort & Inspection: normal respiratory effort and not tachypneic Auscultation: no crackles, no rales, no rhonchi and no wheezes Cardio Rate: regular rate Rhythm: regular rhythm Heart sounds: no murmurs and normal S1 and S2 GI Palpation (GI): Soft to palpation, nontender, no hepatomegaly and no splenomegaly Auscultation: normal bowel sounds Skin General skin exam: no rashes or lesions noted and dry skin Neuro General: oriented to person, oriented to place and oriented to time Cranial nerves: Yes Equal, round and reactive pupils present Speech: No Abnormal speech present Gait exam (Neuro): Normal gait present Motor exam (neuro): no tremor noted Extrem Right upper extremity: full ROM Left upper extremity: full ROM Right lower extremity: full ROM; no edema Left lower extremity: full ROM; no edema Psych Mental Status: mental status grossly normal Speech and movement: Normal speech and movement present Affect: normal affect Attitude: cooperative Thought process: Normal thought process present Coding Level of Care Code Est Pt Level 4 (91590) Diagnoses Dizziness R42 Disorientation R41.0 Sensorineural hearing loss (SNHL) of right ear with unrestricted hearing of left ear H90.41 Contralateral hearing status: unrestricted hearing on contralateral side Hearing loss type: sensorineural Fatigue, unspecified type R53.83 Fatigue type: unspecified Additional Codes MADHURI-7 Assessment Billing - MADHURI-7 Assessment Tool: MADHURI-7 Assessment 74505 ([id number]) PHQ-9 - 74928 - PHQ-9 Billing: Yes ([id number]) Assessment & Plan Assessment & Plan (1) Dizziness: Code(s): R42 - Dizziness and giddiness Category: Medical Plan: I will arrange an urgent CT scan of the head to investigate for any intracranial pathology contributing to his dizziness. The patient will be monitored, with consideration of peripheral causes given past normal vestibular test results. (2) Disorientation: Code(s): R41.0 - Disorientation, unspecified Category: Medical Plan: I will arrange an urgent CT scan of the head to investigate for any intracranial pathology contributing to his dizziness. The patient will be monitored, with consideration of peripheral causes given past normal vestibular test results. (3) Hearing loss in right ear: Code(s): H91.91 - Unspecified hearing loss, right ear Category: Medical Qualifiers: Contralateral hearing status: unrestricted hearing on contralateral side Hearing loss type: sensorineural Qualified Code(s): H90.41 - Sensorineural hearing loss, unilateral, right ear, with unrestricted hearing on the contralateral side Plan: Unclear etiology to patient's sudden right sided hearing loss. Will try to get CT of head evaluate for intracranial pathology. For now will try prednisone taper and antibiotic for possible infection and inflammation in the middle ear. (4) Fatigue: Code(s): R53.83 - Other fatigue Category: Medical Qualifiers: Fatigue type: unspecified Qualified Code(s): R53.83 - Other fatigue Plan: As above Orders: Orders CT head/brain w IV con Today R41.0 - Disorientation, unspecified SARS-CoV2/FLU/RSV Today R53.83 - Other fatigue UA CC w/rflx Micro + Cult Today R30.0 - Dysuria, R41.0 - Disorientation, unspecified Complete Blood Count no Diff Today R53.83 - Other fatigue Comprehensive Met. Panel Today R42 - Dizziness and giddiness Ethanol Today R42 - Dizziness and giddiness Referrals Speech and Hearing Referral H90.41 - Sensorineural hearing loss, unilateral, right ear, with unrestricted hearing on the contralateral side Medications: New prednisone Take 3 tablets x3 days, 2 tablets x3 days, 1 tablet x3 days 10 mg PO DIRECTED 18 tabs 0RF 9 days H91.91 - Unspecified hearing loss, right ear amoxicillin 500 mg PO Q12H 14 tabs 0RF 7 days H91.91 - Unspecified hearing loss, right ear Refilled fenofibrate 160 mg PO DAILY 30 tabs 0RF 30 days E78.2 - Mixed hyperlipidemia atorvastatin 10 mg PO BEDTIME 30 tabs 0RF E78.2 - Mixed hyperlipidemia enalapril maleate 10 mg PO DAILY 90 caps 1RF 90 days I10 - Essential (primary) hypertension Discontinued methylprednisolone (Medrol (Justin)) Take daily in the morning per package instructions Discontinued Reason: Doctor's Order 4 mg PO DAILY 1 ea 0RF
== END 2024-11-05 16:26 | disposition home or self-care (01) ==
PROVIDERS: PCP Physician Assistant; Visit Provider Physician Assistant
DX: R42 Dizziness and giddiness (principal); R41.0 Disorientation, unspecified; H90.41 Sensorineural hearing loss, unilateral, right ear, with unrestricted hearing on the contralateral side; R53.83 Other fatigue

== ENCOUNTER 2024-11-05 16:01 | Outpatient (REF) | payer MEDICARE, MEDICAID, SELFPAY ==
[2024-11-05 17:12] LABS: Hematocrit 39.6 % (42.0-52.0); Hemoglobin 13.7 g/dl (14.0-18.0); Mean Corpuscular HGB Conc 34.6 g/dl (31.0-36.0); Mean Corpuscular Hemoglobin 31.9 pg (27.0-33.0); Mean Corpuscular Volume 92.3 fL (80.0-98.0); Mean Platelet Volume 8.9 fL (9.4-12.4); Platelet Count 241 X10*3/uL (160-400); Red Blood Count 4.29 X10*6/uL (4.60-5.80); Red Cell Distribution Width 12.5 % (11.0-16.0); White Blood Count 7.2 X10*3/uL (4.8-10.8)
[2024-11-05 17:23] LABS: Appearance Urine Clear; Color Urine Yellow; Glucose Urine UA Negative (Negative); Leukocyte Esterase Urine Negative (Negative); Nitrite Urine Negative (Negative); Specific Gravity - Urine >= 1.030 (1.005-1.025); Urine Blood Negative (Negative); Urine Ketones 15 mg/dL (Negative); Urine Protein Negative (Neg-Trace)
[2024-11-05 17:41] LABS: Alanine Aminotransferase 34 U/L (0-40); Albumin Level 4.3 g/dL (3.5-5.0); Alkaline Phosphatase 72 U/L (39-117); Anion Gap 10 (12-20); Aspartate Amino Transferase 49 U/L (5-37); Bilirubin Total 0.6 mg/dL (0.0-1.0); Blood Urea Nitrogen 10 mg/dL (9-16); Calcium 9.9 mg/dL (8.4-10.2); Carbon Dioxide 29 mmol/L (22-29); Chloride 103 mmol/L (96-108); Estimated Glomerular Filt Rate > 60; Ethanol 21 mg/dL; Glucose Fasting 87 mg/dL (60-99); Glucose Random 87 mg/dL (60-115); Potassium 4.7 mmol/L (3.3-5.1); Sodium 137 mmol/L (135-145); Total Protein 7.6 g/dL (6.5-8.0)
[2024-11-05 17:49] LABS: Microalbum/Creatinine Ratio Ur 4.6 ug/mg cr (<30)
[2024-11-05 17:55] LABS: TSH reflex Free T4 5.58 uIU/mL (0.32-4.0)
[2024-11-05 17:55] LABS: Prostate Specific Antigen Scr 0.56 ng/mL (<0.05-4.0)
[2024-11-05 18:01] LABS: Influenza A PCR NEGATIVE (Negative); Influenza B PCR NEGATIVE (Negative); Resp Syncy Virus RNA Qual PCR NEGATIVE (Negative); SARS COV2 PCR INHOUSE NEGATIVE (Negative)
== END 2024-11-05 16:02 | disposition home or self-care (01) ==
LOC: HO.LAB 16:01
PROVIDERS: PCP Physician Assistant; Visit Provider Physician Assistant
DX: R42 Dizziness and giddiness (principal); R41.0 Disorientation, unspecified; H90.41 Sensorineural hearing loss, unilateral, right ear, with unrestricted hearing on the contralateral side; R53.83 Other fatigue; R30.0 Dysuria; I10 Essential (primary) hypertension; E06.3 Autoimmune thyroiditis; Z12.5 Encounter for screening for malignant neoplasm of prostate
CPT/HCPCS: 0241U; 80053; 80307; 81003; 82043; 82570; 84153; 84439; 84443; 85027; 96127; 99212

== ENCOUNTER 2025-01-13 07:55 | Outpatient (REF) | payer MEDICARE, MEDICAID, SELFPAY | END 2025-01-13 07:56 | disposition home or self-care (01) | LOC: HO.SH 07:55 | PROVIDERS: Visit Provider Physician Assistant | DX: Z01.118 Encounter for examination of ears and hearing with other abnormal findings (principal); H90.A31 Mixed conductive and sensorineural hearing loss, unilateral, right ear with restricted hearing on the contralateral side; H90.A22 Sensorineural hearing loss, unilateral, left ear, with restricted hearing on the contralateral side | CPT/HCPCS: 92557; 92567 ==

== ENCOUNTER 2025-01-16 08:04 | Outpatient (AMB) | payer MEDICARE, MEDICAID, SELFPAY ==
--- NOTE | 2025-01-16 08:19 | A.OFFVIS_ITS ---
Vital Signs 01/16/25 08:20 Height 5 ft 4 in Weight 153 lb BMI 26.3 Intake Visit Reasons: OV-F/u Trigger injections Intake Note: Aidan is a 64 year old male who presents today for follow up from his Trigger injection #2, last injection was 10/16/24. At last visit it was discussed next injection to be scheduled depending on patient's improvement. Patient states - Allergies lisinopril (LISINOPRIL) Allergy (Unknown, Verified 01/16/25 08:20) HIVES HPI Comments Details: Patient initially seen 08/29/2024 complaining of left shoulder/upper trapezius pain/tightness. We performed series of trigger point injections up until September 2024. These helped him. He also takes methacarbamol which also helps for the aches, taken as needed only. It's not as bad yet. No radiation to arm. No numbness. Previous left shoulder x-ray normal. Previous cervical x-ray reviewed by me, preserved disc spaces. He did see PCP for right hearing loss, workup being done per patient. He prescribes the methocarbamol. He was also prescribed prednisone but he does not remember why. [facility] Medical History Screening for prostate cancer Screening for diabetes mellitus Subclinical hypothyroidism Mixed hypercholesterolemia and hypertriglyceridemia Overweight (BMI 25.0-29.9) Alcohol abuse Margaret's disease Thyroid nodule Hypertriglyceridemia Surgical History History of colonoscopy History of surgery on wrist Hx of eye surgery Family History Father Gout Mother Diabetes Social History Household Members: None Housing: Apartment Alcohol intake: current Alcohol intake frequency: holidays/special occasions only Alcohol type: beer Patient Tobacco Use Status: Never used Tobacco e-Cigarette/Vaping Use: Never Used service: No Current occupational status: retired and disabled Current occupation: right hand dominant Cognitive needs: No Hearing needs: No Vision needs: Yes (Pt wear reading glasses.) Physical Exam Vital Signs: BMI result Body Mass Index 26.3 Constitutional: Patient appears to be in no acute distress, well nourished and well developed. Patient was appropriately conversant and oriented. Good historian. MSK: Inspection reveals appropriate head and neck positioning. Trigger points and tightness on left upper trapezius. Cervical ROM was full. Spurling's sign negative. Bilateral shoulder, elbow and wrist ROM WNL. No ligamentous laxity or crepitance. No increased effusion. Negative speed's test. Negative empty can sign. Strength is 5/5 in all muscle groups tested. No increased tone noted. Neurological: Neurologic examination of the upper and lower extremities was nonfocal with intact sensation, muscle stretch reflexes and without focal motor deficits . Guerrero?s negative bilaterally. Gait is non-antalgic without loss of balance. Office Procedures Therapeutic Injection Therapeutic Injection Details: Trigger point injection, left upper trapezius. Consent obtained. Three trigger points palpated on left upper trapezius. Area cleansed with Betadine. Needling performed with gauge 27 needle, subsequently injecting 1 ml of 2% Lidocaine., total of 3 mL. Patient tolerated procedure well. Post-injection instructions given. 27096-Cpufgch Point Injection 3 or more All charges added?: Procedure code (CPT) selection complete Results Reviewed Results Reviewed: Ordering Physician: Yamileth Neely Date of Service: 04/23/24 Procedure(s): XR shoulder LT min 2V Accession Number(s): [id number] cc: Pravin Dupree PA-C; Yamileth Neely~ EXAMINATION: XR SHOULDER, LEFT CLINICAL INFORMATION: Left shoulder and upper back pain COMPARISON: None available. TECHNIQUE: Four views of the left shoulder. FINDINGS: The bones and soft tissues are normal. No fracture. Glenohumeral and acromioclavicular alignment is anatomic with normal joint space. No abnormal soft tissue calcifications. XR/XR shoulder LT min 2V IMPRESSION: Normal left shoulder. Electronically signed by: Kate Mars MD 04/23/2024 08:02 PM EDT Ordering Physician: Pravin Dupree PA-C Date of Service: 03/18/24 Procedure(s): XR cervical spine 4V Accession Number(s): [id number] cc: Joon,Pravin PA-C~ EXAMINATION: XR CERVICAL SPINE CLINICAL INFORMATION: Neck pain COMPARISON: None available. TECHNIQUE: 5 views of cervical spine including bilateral oblique views. FINDINGS: Cervical vertebrae have normal height and alignment. No fracture or bone destruction. Mild disc height narrowing and small vertebral endplate spurs C5-C6. Neural foramina are open bilaterally. Facet joints are normal. Carotid arteries vascular calcifications bilaterally. XR/XR cervical spine 4V IMPRESSION: 1. No acute abnormality. 2. Mild degenerative spondylosis of cervical spine. Electronically signed by: Ramon Kee MD 03/31/2024 03:53 PM EDT RP I reviewed records from the following: Ortho Assessment & Plan Assessment & Plan (1) Myofascial pain: Code(s): M79.18 - Myalgia, other site Category: Medical Plan Patient wanted to repeat trigger point injections today as it previously have helped him a lot. Tolerated procedure well. On exam, no signs of cervical myelopathy or radiculopathy. No signs of shoulder pathology on exam. Pain appears to be coming from left upper trapezius being tight with trigger points. Assessment and plan discussed with patient, and patient was agreeable. All questions were answered thoroughly. Rosemary Sprague MD, LIANNE Board Certified, [place] Board of Physical Medicine and Rehabilitation (ABPMR) Board Certified, [place] Board of Electrodiagnostic Medicine (ABEM) Orders: Orders AMB Trigger Point Injection Today M79.18 - Myalgia, other site Medications: Discontinued prednisone Take 3 tablets x3 days, 2 tablets x3 days, 1 tablet x3 days Discontinued Reason: Patient Completed Course 10 mg PO DIRECTED 9 days 18 tabs 0RF H91.91 - Unspecified hearing loss, right ear Coding Level of Care Code Est Pt Level 3 (82712) Diagnoses Myofascial pain M79.18 CPT Codes Therapeutic Injection - Ther Injection 2: 23655-Surrsee Point Injection 3 or more ([id number])
[2025-01-16 08:20] VITALS: BMI 26.3
== END 2025-01-16 08:56 | disposition home or self-care (01) ==
LOC: HO.HOS 08:05
PROVIDERS: PCP Physician Assistant; Visit Provider Physical Medicine & Rehabilitation
DX: M79.18 Myalgia, other site (principal); M54.2 Cervicalgia; M25.512 Pain in left shoulder
CPT/HCPCS: 20553; 99213

== ENCOUNTER → 2025-01-16 08:04 | Outpatient (BNVA) | payer MEDICARE, MEDICAID, SELFPAY | PROVIDERS: PCP Physician Assistant; Visit Provider Physical Medicine & Rehabilitation | DX: M79.18 Myalgia, other site (principal) | CPT/HCPCS: 20553; 99212; J2003 ==

== ENCOUNTER 2025-01-22 07:38 | Outpatient (REF) | payer MEDICARE, MEDICAID, SELFPAY ==
--- NOTE | ~2025-01-22 | CT_ITS ---
CLINICAL HISTORY: R41.0 - Disorientation, unspecified --- Additional Notes or Special Instructions: Patient with acute dizziness and disorientation with acute right sided your CT head without contrast Comparison: None provided Findings: No intra-axial mass, midline shift, hydrocephalus, or acute hemorrhage. Mild age-related cerebral hemispheric white matter ischemic changes. Hypoplastic/sclerotic mastoid air cells bilaterally. The orbits are within normal limits. No skull fracture. IMPRESSION: 1. No acute intracranial findings. This document has been electronically signed by: Ashlee Danielson MD on 01/22/2025 12:47:30
== END 2025-01-22 07:39 | disposition home or self-care (01) ==
LOC: HO.CT 07:38
PROVIDERS: PCP Physician Assistant; Visit Provider Physician Assistant
DX: R41.0 Disorientation, unspecified (principal)
CPT/HCPCS: 70450

== ENCOUNTER 2025-01-29 14:29 | Outpatient (REF) | payer MEDICARE, MEDICAID, SELFPAY ==
--- NOTE | ~2025-01-29 | MR_ITS ---
CLINICAL HISTORY: SENSORINEURAL HEARING LOSS, BILATERSL HEARING LOSS MR Brain with and without gadolinium. Thin slice high-resolution imaging obtained through the IAC's. Comparison: None provided Findings: No restricted diffusion. No intra-axial mass or hemorrhage. No midline shift. No hydrocephalus. Vascular flow voids are intact. No cerebellopontine angle mass. No abnormal enhancement involving the visualized cranial nerves. Type 2 vascular loop on the right. Mild scattered T2 signal prolongation in the periventricular white matter. Orbital contents are unremarkable. The sinuses and mastoid air cells are clear. No focal bone lesion. IMPRESSION: No acute findings. No cerebellopontine angle mass or abnormal enhancement. Type 2 vascular loop noted on the right. Mild, age-appropriate white matter disease. This document has been electronically signed by: Rd Peterson MD on 01/30/2025 14:42:28
== END 2025-01-29 14:30 | disposition home or self-care (01) ==
LOC: HO.MRI 14:29
PROVIDERS: PCP Physician Assistant; Visit Provider Otolaryngology
DX: H90.3 Sensorineural hearing loss, bilateral (principal)
CPT/HCPCS: 70553; A9585

== ENCOUNTER → 2025-01-29 14:50 | Outpatient (BNV) | payer MEDICARE, MEDICAID, SELFPAY | PROVIDERS: PCP Physician Assistant; Visit Provider Radiology Vascular & Interventional Radiology | DX: H90.3 Sensorineural hearing loss, bilateral (principal) | CPT/HCPCS: 70553 ==

== ENCOUNTER 2025-03-16 10:17 | Outpatient (AMB) | payer MEDICARE, MEDICAID, SELFPAY ==
--- NOTE | 2025-03-16 10:23 | AM.OFFVISMDC ---
Intake Vital Signs 03/16/25 10:25 Height 5 ft 4 in Weight 152 lb BMI 26.1 BP 130/70 Blood Pressure Location Lt brachial Position Sitting Pulse 66 Pulse Source Pulse Oximeter Temp 97.1 F Temp Source Temporal Artery Scan Pulse Oximetry (%) 98 Oxygen Delivery Method Room Air Intake Visit Reasons: Annual exam/ [id number] Intake Note: Patient is here for an Annual Wellness Visit. 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 Operations Engineer Required: No Medical Data Entry Clerk: Medical Data Entry Clerk offered & declined Accompanied by: Self / Same As Patient Allergies lisinopril (LISINOPRIL) Allergy (Unknown, Verified 03/16/25 10:49) HIVES Medication List - Last Reconciled 03/16/25 by Pravin Dupree PA-C acetaminophen-codeine 300-30 mg 1 tab PO BID PRN 7 days allopurinol 300 mg PO DAILY atorvastatin 10 mg PO BEDTIME enalapril maleate 10 mg PO DAILY 90 days fenofibrate 160 mg PO DAILY 30 days levothyroxine 50 mcg PO DAILY 30 days methocarbamol 750 mg PO BID PRN HPI Annual exam/ [id number] HPI Details Patient is a 64-year-old male here today for a annual wellness visit Patient has a past medical history significant for gout, hyperlipidemia, hypertension, anxiety, mood disorder, alcohol use disorder. Today we discussed patient's end of life planning, viejas of care and her comprehensive treatment plan which was scanned into patient's documents.. Who manages his needs has been hurting him in physical therapy in the past has been helpful to reduce his knee pain. He is interested in physical therapy Vaccines: Up-to-date with shingles, tetanus, RSV, COVID vaccines. Considering flu vaccine this year Colorectal cancer screening--> Done in 2022-normal repeat 10 years . HPI Comments History of Present Illness Details reviewed past medical history- yes reviewed surgical / hospitalization history- yes reviewed current medications- yes reviewed family history- yes home safety throw rugs? grab bars? raised toilet seat? working smoke detectors? activities of daily living difficulty bathing or showering? difficulty dressing? difficulty using the toilet? difficulty getting in and out of bed? difficulty walking? receives help from other person's with any of the above tasks? instrumental activities of daily living uses telephone - gets to place out of walking distance- go shopping for groceries- repairs own meals- does own minor home maintenance- does own laundry- does own housework- manages own money- currently takes medication- end of life planning discussed advanced directives- yes advanced directives on file? discussed wishes expressed in advanced directives. fall risk have you had any falls with injuries in the past year? have you had 2 or more falls in the past year? fall risk assessment: [facility] Medical History Screening for prostate cancer Screening for diabetes mellitus Subclinical hypothyroidism Mixed hypercholesterolemia and hypertriglyceridemia Overweight (BMI 25.0-29.9) Alcohol abuse Margaret's disease Thyroid nodule Hypertriglyceridemia Surgical History History of colonoscopy History of surgery on wrist Hx of eye surgery Family History Father Gout Mother Diabetes Social History Household Members: None Housing: Apartment Alcohol intake: current Alcohol intake frequency: holidays/special occasions only Alcohol type: beer Patient Tobacco Use Status: Never used Tobacco e-Cigarette/Vaping Use: Never Used service: No Current occupational status: retired and disabled Current occupation: right hand dominant Cognitive needs: No Hearing needs: No Vision needs: Yes (Pt wear reading glasses.) Questionnaire Medicare Wellness Checkup What is your age?: 65-69 (64) What gender do you identify with?: male During the past 4 weeks, how much have you been bothered by emotional problems such as feeling anxious, depressed, irritable, sad or downhearted, and blue?: moderately During the past 4 weeks, has your physical & emotional health limited your social activities with family, friends, neighbors, or groups?: quite a bit During the past 4 weeks, how much bodily pain have you generally had?: moderate pain During the past 4 weeks, was someone available to help you if you needed & wanted help?: no, not at all During the past 4 weeks, what was the hardest physical activity you could do for at least 2 minutes?: heavy Can you get to places out of walking distance without help? (For eg., can you travel alone on buses, taxis or drive your car?): Yes Can you go shopping for groceries or clothes without someone's help?: Yes Can you prepare your own meals?: Yes Can you do your housework without help?: Yes (limited) Because of any health problems, do you need the help of another person with your personal care needs such as eating, bathing, dressing or getting around the house?: No Can you handle your own money without help?: Yes During the past 4 weeks, how would you rate your health in general?: good During the past 4 weeks how have things been going for you?: good & bad parts about equal Are you having difficulties driving your car?: no Do you always fasten your seat belt when you are in a car?: yes, usually During past 4 weeks, have you been bothered by the following: never: Sexual problems? and Problems using the telephone?, sometimes: Trouble eating well?, Teeth or denture problems? and Tiredness or fatigue? and often: Falling or dizzy when standing up Have you fallen 2 or more times in the past year?: Yes Are you afraid of falling?: Yes Are you a smoker?: no During the past 4 weeks, how many drinks of wine, beer, or other alcoholic beverages did you have?: 2-5 drinks per week Do you exercise for about 20 minutes 3 or more times a week?: yes, some of the time Have you been given information to help with the following?: yes: Hazards in your house that might hurt you? and no: Keeping track of your medications? How often do you have trouble taking medicines the way you have been told to take them?: I always take medicine as prescribed How confident are you that you can control & manage most of your health problems?: somewhat confident What is your race?: or origin or descent Mini Mental State Exam (MMSE) Orientation What is the (year) (season) (date) (day) (month)?: year Where are we (state) (county) (town or city) (hospital) (floor)?: town or city Attention & Calculation (CHOOSE ONE) Spell WORLD backwards (DLROW): 5 letters Score Score: 7 Activity of Daily Living Bathing - sponge bath, tub bath or shower: receives no assistance (gets in/out by self, if usual bathing means Dressing - getting clothes from closets & drawers, including inner/outer garments & fasteners.: gets clothes & gets completely dressed without help Toileting - going to the 'toilet room' for urine/bowel elimination & cleaning self/arranging clothes: goes to toilet room, cleans self, arranges clothes without help Transfer: moves in & out of bed and chair without help (may use support object) Continence: controls urination/bowel movements completely by self Feeding: feeds self without help Total Score: 0 Information obtained from: patient Using telephone: independent Traveling: independent Shopping: independent Preparing meals: independent Housework: independent Taking medicine: independent Managing money: independent PHQ-9 Over the last 2 weeks, how often have you been bothered by any of the following problems? 1. Little interest or pleasure in doing things: several days 2. Feeling down, depressed, or hopeless: several days 3. Trouble falling or staying asleep, or sleeping too much: several days 4. Feeling tired or having little energy: several days 5. Poor appetite or overeating: several days 6. Feeling bad about yourself - or that you are a failure or have let yourself or your family down: not at all 7. Trouble concentrating on things, such as reading the newspaper or watching television: several days 8. Moving or speaking so slowly that other people could have noticed. Or the opposite - being so fidgety or restless that you have been moving around a lot more than usual: not at all 9. Thoughts that you would be better off or of hurting yourself in some way: not at all Total score: 6 Depression Screening Interpretation: Positive Depression Screening Done: Yes Source: Developed by Drs. Edson Lemons, Ellie Dowd, Ba Ibarra and colleagues, with an educational malcolm from [employer]. Thrive Questionnaire Date Thrive assessed: 11/05/24 I am a: Patient What is your living situation today?: I have a steady place to live Within the past 12 months, did the food you bought not last and you didn't have the money to get more?: Often true Within the past 12 months, did you worry whether your food would run out before you got money to buy more?: Often true Do you have trouble paying for medicines?: No Do you have trouble getting transportation to medical appointments?: Yes Do you have trouble paying your heating and electricity bill?: Yes Do you have trouble taking care of your child, family member or friend?: I choose not to answer this question Do you have trouble with day-to-day activities such as bathing, preparing meals, shopping, managing finances, etc.?: No Are you currently unemployed and looking for a job?: No Are you interested in more education?: No Please select the resources that you would like help with: Food, Transportation and Utilities Currently or been in a relationship where the following occur: No concerns reported THRIVE Score: 4 MADHURI-7 AMB Questionnaire MADHURI-7 Date MADHURI - 7 assessed: 03/16/25 Feeling nervous, anxious, or on edge: 1 = Several days Not being able to stop or control worryin = Several days Worrying too much about different things: 3 = Nearly every day Trouble relaxin = More than half the days Being so restless that it is hard to sit still: 1 = Several days Becoming easily annoyed or irritable: 2 = More than half the days Feeling afraid as if something awful might happen: 1 = Several days Total MADHURI-7 score (0-4 normal; 5-9 mild; 10-14 moderate; 15-21 severe): 11 Source: Developed by Drs. Edson Lemons, Ellie Dowd, Ba Ibarra and colleagues, with an educational malcolm from [employer]. MADHURI-7 Assessment Billing MADHURI-7 Assessment Tool: MADHURI-7 Assessment 02805 Physical Exam Vital Signs: Last Vital Signs Temp 97.1 F 03/16/25 10:25 Pulse 66 03/16/25 10:25 BP 130/70 03/16/25 10:25 Pulse Ox 98 03/16/25 10:25 Oxygen Delivery Method Room Air 03/16/25 10:25 BMI result Body Mass Index 26.1 HEENT Other: hearing screening whisper test- failed - NEED ENT EVALUATION Eyes Other: vision screening- 20 20 OS OD OU Other: urinary incontinence? no Neuro Other: balance Romberg- normal tandem walk test- able walk-in turned test- able rise from sit to stand- within 2 seconds Assessment & Plan Assessment & Plan (1) Annual wellness visit: Code(s): Z00.00 - Encounter for general adult medical examination without abnormal findings Plan: As per HPI (2) Bilateral primary osteoarthritis of knee: Code(s): M17.0 - Bilateral primary osteoarthritis of knee Plan: Will likely benefit from physical therapy for his bilateral knee pain Orders: Orders Comprehensive [place]. Panel Fast Today I10 - Essential (primary) hypertension Complete Blood Count no Diff Today I10 - Essential (primary) hypertension Lipid Panel Today E78.1 - Pure hyperglyceridemia Prostate Specific Antigen Scr Today E78.1 - Pure hyperglyceridemia, Z12.5 - Encounter for screening for malignant neoplasm of prostate PT Evaluation and Treatment Today M17.0 - Bilateral primary osteoarthritis of knee Microalbumin, Random (w Creat) Today I10 - Essential (primary) hypertension Medications: Changed From atorvastatin 10 mg PO BEDTIME 30 tabs 0RF E78.2 - Mixed hyperlipidemia To atorvastatin 10 mg PO BEDTIME 90 tabs 1RF 90 days E78.2 - Mixed hyperlipidemia Refilled levothyroxine 50 mcg PO DAILY 30 tabs 2RF 30 days E03.9 - Hypothyroidism, unspecified acetaminophen-codeine 300-30 mg 1 tab PO BID PRN 14 tabs 1RF pain 7 days M54.5 - Low back pain enalapril maleate 10 mg PO DAILY 90 caps 1RF 90 days I10 - Essential (primary) hypertension Quality Reporting (2019) Depression/Bipolar (159/160/161/177) PHQ-9: Total score: 6 Coding Level of Care Code Medicare First (G0438) Diagnoses Annual wellness visit Z00.00 Bilateral primary osteoarthritis of knee M17.0 Additional Codes MADHURI-7 Assessment Billing - MADHURI-7 Assessment Tool: MADHURI-7 Assessment 93997 ([id number])
[2025-03-16 10:25] VITALS: BP 130/70; PULSE 66; TEMP 36.2; O2SAT 98; BMI 26.1
== END 2025-03-16 11:14 | disposition home or self-care (01) ==
LOC: HO.HMCH 10:17
PROVIDERS: PCP Physician Assistant; Visit Provider Physician Assistant
DX: Z00.00 Encounter for general adult medical examination without abnormal findings (principal); M17.0 Bilateral primary osteoarthritis of knee

== ENCOUNTER → 2025-03-16 10:17 | Outpatient (BNVA) | payer MEDICARE, MEDICAID, SELFPAY | PROVIDERS: PCP Physician Assistant; Visit Provider Physician Assistant | DX: Z00.00 Encounter for general adult medical examination without abnormal findings (principal); M10.9 Gout, unspecified; E78.5 Hyperlipidemia, unspecified; I10 Essential (primary) hypertension; F41.9 Anxiety disorder, unspecified; M17.0 Bilateral primary osteoarthritis of knee; E78.1 Pure hyperglyceridemia; E78.2 Mixed hyperlipidemia; E03.9 Hypothyroidism, unspecified; M54.50 Low back pain, unspecified | CPT/HCPCS: 96127 ==

== ENCOUNTER 2025-04-01 10:07 | Outpatient (AMB) | payer MEDICARE, MEDICAID, SELFPAY ==
--- OUTSIDE RECORDS SUMMARY | 2025-03-26 10:00 | XMS_ITS ---
Author Organization [facility] Address [address] [facility] [address] [place] [address] Care Team Providers Care Lock Tender Chief Operator Name Role Phone NO PCP, NO PCP Primary Care Provider Sandra Russell M.D, M.P.H, Emilie Unavailable Luzma Multani Unavailable [phone] REASON FOR VISIT hearing loss Encounters Encounter Location Date Provider Diagnosis [facility] [address] [facility] [address] [place] [address] 03/26/2025 Luzma Multani Plan Of Treatment No Information Progress Notes * VELASQUEZAidan GARCÍADOB: [birth year] (64 yo M)Acc No.[id number]:03/26/2025 Patient: Aidan ROSARIO Provider: Ligia Multani High Lighter :1960 A ge:64 Y S ex:Male Date:03/26/2025 Address:[address] [place], [place] [id number] Pcp:NO PCP NO PCP Subjective: * Chief Complaints: * 1 . Hearing loss. * Medical History: Objective: * Vitals: * Physical Examination: Assessment: Plan: * Treatment: * Images: * Electronic signature of DMITRI Noriega on 04/01/2025 at 11:22 AM EDT Sign off status: Pending * Provider: Ligia Multani High Lighter Date: 0 03/26/2025 Generated for Dianna garcia/Regan/eTransmitting on: 1 11:22 AM EDT
--- OUTSIDE RECORDS SUMMARY | 2025-03-26 10:30 | XMS_ITS ---
Author Organization [facility] Address [address] [facility] [address] [place] [address] Care Team Providers Care Electric Scoop Operator Name Role Phone NO PCP, NO PCP Primary Care Provider Sandra Russell M.D, M.P.H, Emilie Sapp REASON FOR VISIT hearing loss Encounters Encounter Location Date Provider Diagnosis [facility] [address] [address] 03/26/2025 Emilie Russell Plan Of Treatment No Information Progress Notes * Aidan ENGDOB: [birth year] (64 yo M)Acc No.[id number]:03/26/2025 Progress Note Patient: Aidan ROSARIO Provider: Gabriele Russell M.D.,M.P.H :1960 A ge:64 Y S ex:Male Date:03/26/2025 Address:[address] [place], [place] [phone] Pcp:NO PCP NO PCP Subjective: * Chief Complaints: * 1 . Hearing loss. * Medical History: Objective: * Vitals: * Physical Examination: Assessment: Plan: * Treatment: * Images: * Electronic signature of Jen Russell M.D, M.P.H, Dereje,M.P.H on 04/01/2025 at 11:21 AM EDT Sign off status: Pending * Provider: Gabriele Russell M.D.,M.P.H Date: 0 03/26/2025 Generated for Printi ng/Regan/Brennaitting on: 1 11:21 AM EDT
[2025-04-01 10:14] VITALS: BP 118/70; PULSE 69; TEMP 36.2; O2SAT 99; BMI 25.8
--- NOTE | 2025-04-01 10:14 | A.OFFPC_ITS ---
Vital Signs 04/01/25 10:14 Height 5 ft 4 in Weight 150 lb 8 oz BMI 25.8 BP 118/70 Blood Pressure Location Lt brachial Position Sitting Pulse 69 Pulse Source Pulse Oximeter Temp 97.1 F Temp Source Temporal Artery Scan Pulse Oximetry (%) 99 Oxygen Delivery Method Room Air Intake Visit Reasons: F/U on ENT specialist Allergies lisinopril (LISINOPRIL) Allergy (Unknown, Verified 04/01/25 10:38) HIVES Medication List - Last Reconciled 04/01/25 by Pravin Dupree PA-C acetaminophen-codeine 300-30 mg 1 tab PO BID PRN 7 days allopurinol 300 mg PO DAILY atorvastatin 10 mg PO BEDTIME 90 days enalapril maleate 10 mg PO DAILY 90 days fenofibrate 160 mg PO DAILY 30 days levothyroxine 50 mcg PO DAILY 30 days methocarbamol 750 mg PO BID PRN Tobacco use date assessed: 04/01/25 Dental Screening Dental Screen Date: 04/01/25 Did you have a dental visit in the last 12 months?: Yes Did you have a dental problem in the last 6 months where you did not have access to dental care?: No Was dental information given to patient?: Patient has dentist HPI F/U on ENT specialist HPI Details The patient is a 64-year-old male presenting with hearing loss in the right ear. The hearing issue was initially evaluated by an ENT in [place], where a h earing test was conducted, and results were provided (showing severe abnormalities of his right ear) The hearing issue was initially evaluated by an ENT in [place], where a hearing test was conducted, and results were provided. The patient reports that the ENT in [place] did not provide hearing aids, and he is seeking further evaluation and management for his condition. A brain MRI was performed, which showed no acute findings, ruling out any immediate neurological concerns. . The patient reports that the ENT in [facility] did not provide hearing aids, and he is seeking further evaluation and management for his condition. [facility] Medical History Screening for prostate cancer Screening for diabetes mellitus Subclinical hypothyroidism Mixed hypercholesterolemia and hypertriglyceridemia Overweight (BMI 25.0-29.9) Alcohol abuse Margaret's disease Thyroid nodule Hypertriglyceridemia Surgical History History of colonoscopy History of surgery on wrist Hx of eye surgery Family History Father Gout Mother Diabetes Social History Household Members: None Housing: Apartment Alcohol intake: current Alcohol intake frequency: holidays/special occasions only Alcohol type: beer Patient Tobacco Use Status: Never used Tobacco e-Cigarette/Vaping Use: Never Used service: No Current occupational status: retired and disabled Current occupation: right hand dominant Cognitive needs: No Hearing needs: No Vision needs: Yes (Pt wear reading glasses.) Questionnaire PHQ-9 Over the last 2 weeks, how often have you been bothered by any of the following problems? 1. Little interest or pleasure in doing things: several days 2. Feeling down, depressed, or hopeless: several days 3. Trouble falling or staying asleep, or sleeping too much: several days 4. Feeling tired or having little energy: several days 5. Poor appetite or overeating: several days 6. Feeling bad about yourself - or that you are a failure or have let yourself or your family down: not at all 7. Trouble concentrating on things, such as reading the newspaper or watching television: several days 8. Moving or speaking so slowly that other people could have noticed. Or the opposite - being so fidgety or restless that you have been moving around a lot more than usual: not at all 9. Thoughts that you would be better off or of hurting yourself in some way: not at all Total score: 6 Depression Screening Interpretation: Positive Depression Screening Follow-up: Existing condition Depression Screening Done: Yes 84089 - PHQ-9 Billing: Yes Source: Developed by Drs. Edson Lemons, Ellie Dowd, Ba Ibarra and colleagues, with an educational malcolm from [employer]. Thrive Questionnaire Date Thrive assessed: 11/05/24 I am a: Patient What is your living situation today?: I have a steady place to live Within the past 12 months, did the food you bought not last and you didn't have the money to get more?: Often true Within the past 12 months, did you worry whether your food would run out before you got money to buy more?: Often true Do you have trouble paying for medicines?: No Do you have trouble getting transportation to medical appointments?: Yes Do you have trouble paying your heating and electricity bill?: Yes Do you have trouble taking care of your child, family member or friend?: I choose not to answer this question Do you have trouble with day-to-day activities such as bathing, preparing meals, shopping, managing finances, etc.?: No Are you currently unemployed and looking for a job?: No Are you interested in more education?: No Please select the resources that you would like help with: Food, Transportation and Utilities Currently or been in a relationship where the following occur: No concerns reported THRIVE Score: 4 AUDIT C Alcohol Use Questionnaire (AUDIT-C) 1. How often do you have a drink containing alcohol?: 2-3 times a week 2. How many drinks containing alcohol do you have on a typical day when you are drinking?: 3 or 4 (beer during the weekend and hard liquor on holiday.) 3. How often do you have six or more drinks on one occasion?: Never Total Score: 4 MADHURI-7 AMB Questionnaire MADHURI-7 Date MADHURI - 7 assessed: 03/16/25 Feeling nervous, anxious, or on edge: 1 = Several days Not being able to stop or control worryin = Several days Worrying too much about different things: 3 = Nearly every day Trouble relaxin = More than half the days Being so restless that it is hard to sit still: 1 = Several days Becoming easily annoyed or irritable: 2 = More than half the days Feeling afraid as if something awful might happen: 1 = Several days Total MADHURI-7 score (0-4 normal; 5-9 mild; 10-14 moderate; 15-21 severe): 11 Source: Developed by Drs. Edson Lemons, Ellie Dowd, Ba Ibarra and colleagues, with an educational malcolm from [employer]. MADHURI-7 Assessment Billing MADHURI-7 Assessment Tool: MADHURI-7 Assessment 36395 Review of Systems Const Denies headache(s) Eyes Denies loss of vision ENT Denies vertigo, Denies dizziness, Denies headache(s) and Denies sore throat Card Denies chest pain, Denies leg edema and Denies lightheadedness Resp Denies cough, Denies hemoptysis and Denies wheezing GI Denies abdominal pain, Denies melena, Denies constipation, Denies diarrhea and Denies vomiting Denies dysuria, Denies urinary frequency and Denies urinary urgency Musc Denies arthralgias, Denies joint swelling, Denies numbness and Denies tingling Neuro Denies Abnormal speech present, Denies behavioral changes, Denies vertigo, Denies dizziness, Denies headache(s), Denies loss of vision, Denies memory loss, Denies numbness and Denies tingling Psych Denies anxiety, Denies behavioral changes, Denies depression, Denies memory loss and Denies panic attacks Arsen/Lymph Denies easy bleeding and Denies easy bruising Aller/Immun Denies wheezing Physical exam (Primary Care) Vital Signs: Last Vital Signs Temp 97.1 F 04/01/25 10:14 Pulse 69 04/01/25 10:14 BP 118/70 04/01/25 10:14 Pulse Ox 99 04/01/25 10:14 Oxygen Delivery Method Room Air 04/01/25 10:14 BMI result Body Mass Index 25.8 Tobacco/Smoking Status: Tobacco use Status Tobacco use date assessed 04/01/25 04/01/25 10:18 Patient Tobacco Use Status Never used Tobacco 04/01/25 10:18 e-Cigarette/Vaping Use Never Used 04/01/25 10:18 PHQ-9: PHQ-9 Score PHQ-9: Total score 6 04/01/25 10:18 Depression Screening Interpretation: Positive Depression Screening Follow-up: Existing condition Thrive Assessment: Date of Thrive Assessment Date Thrive assessed 11/05/24 04/01/25 10:18 Currently or been in a relationship where the following occur: No concerns reported Const General: healthy appearing, no acute distress, alert and awake Nutritional Appearance: well nourished Orientation/consciousness: oriented to person, oriented to place and oriented to time HENMT Ears: TM's normal bilaterally General nose exam: Normal nasal mucous membranes and turbinates present Eyes Conjunctivae: conjunctivae normal Sclerae: sclerae normal Pupils: Equal, round and reactive pupils present Neck Neck: Yes no lymphadenopathy and Yes no JVD Thyroid: Thyroid normal Carotids: no bruits Resp Effort & Inspection: normal respiratory effort and not tachypneic Auscultation: no crackles, no rales, no rhonchi and no wheezes Cardio Rate: regular rate Rhythm: regular rhythm Heart sounds: no murmurs and normal S1 and S2 GI Palpation (GI): Soft to palpation, nontender, no hepatomegaly and no splenomegaly Auscultation: normal bowel sounds Skin General skin exam: no rashes or lesions noted and dry skin Neuro General: oriented to person, oriented to place and oriented to time Cranial nerves: Yes Equal, round and reactive pupils present Speech: No Abnormal speech present Gait exam (Neuro): Normal gait present Motor exam (neuro): no tremor noted Extrem Right upper extremity: full ROM Left upper extremity: full ROM Right lower extremity: full ROM; no edema Left lower extremity: full ROM; no edema Psych Mental Status: mental status grossly normal Speech and movement: Normal speech and movement present Affect: normal affect Attitude: cooperative Thought process: Normal thought process present Coding Level of Care Code Est Pt Level 3 (13252) Diagnoses Sensorineural hearing loss (SNHL) of right ear, unspecified hearing status on contralateral side H90.5 Contralateral hearing status: unspecified Additional Codes MADHURI-7 Assessment Billing - MADHURI-7 Assessment Tool: MADHURI-7 Assessment 17990 ([id number]) PHQ-9 - 98528 - PHQ-9 Billing: Yes ([id number]) Assessment & Plan Assessment & Plan (1) Right SNHL: Code(s): H90.5 - Unspecified sensorineural hearing loss Category: Medical Qualifiers: Contralateral hearing status: unspecified Qualified Code(s): H90.5 - Unspecified sensorineural hearing loss Plan: The plan is to refer the patient to an ENT in [place] for further evaluation and management of his right ear hearing loss. The patient will be assessed for hearing aids, as the previous ENT in [place] did not provide them. Patient was informed and verbally consented to the use of an ambient scribe for clinic note documentation during this visit. Orders: Referrals Ear/Nose/Throat Referral H90.5 - Unspecified sensorineural hearing loss
--- OUTSIDE RECORDS SUMMARY | 2025-04-01 11:22 | XMS_ITS | Patient Health Record ---
Author Organization [facility] Address [address] [place] [address] Care Team Providers Care Cabinet Mounter Name Role Phone NO PCP, NO PCP Primary Care Provider Sandra Russell M.D, M.P.H, Emilie Unavailable [phone] Rangel, Luzma Unavailable [phone] Reason For Referral No Information Plan Of Treatment No Information Insurance Providers Payer Name Payer Address Payer Phone Subscriber Number Group Number Insured Name Patient Relationship to Insured Coverage Start Date Coverage End Date Medicare [employer] [address] [facility] [place], [place] [id number] Aidan Eng Self - patient is the insured [facility] [address] [place] [address] [id number] Aidan Eng Self - patient is the insured
== END 2025-04-01 10:43 | disposition home or self-care (01) ==
LOC: HO.HMCH 10:08
PROVIDERS: PCP Physician Assistant; Visit Provider Physician Assistant
DX: H90.5 Unspecified sensorineural hearing loss (principal)

== ENCOUNTER → 2025-04-01 10:07 | Outpatient (BNVA) | payer MEDICARE, MEDICAID, SELFPAY | PROVIDERS: PCP Physician Assistant; Visit Provider Physician Assistant | DX: E06.3 Autoimmune thyroiditis (principal); H90.5 Unspecified sensorineural hearing loss | CPT/HCPCS: 96127; 99212 ==

== ENCOUNTER 2025-05-06 09:59 | Outpatient (REF) | payer MEDICARE, MEDICAID, SELFPAY ==
--- OUTSIDE RECORDS SUMMARY | 2025-03-26 09:00 | XMS_ITS ---
Author Organization [facility] Address [address] [facility] [address] [place] [address] Care Team Providers Care Project Executive Name Role Phone NO PCP, NO PCP Primary Care Provider Sandra Russell M.D, M.P.H, Emilie Unavailable Luzma Multani Unavailable [phone] REASON FOR VISIT hearing loss Encounters Encounter Location Date Provider Diagnosis [facility] [address] [facility] [address] [place] [address] 03/26/2025 Luzma Multain Plan Of Treatment No Information Progress Notes * VELASQUEZAidan GARCÍADOB: [birth year] (64 yo M)Acc No.[id number]:03/26/2025 Patient: Aidan ROSARIO Provider: Ligia Multani Business Developer :1960 A ge:64 Y S ex:Male Date:03/26/2025 Address:[address] [place], [place] [id number] Pcp:NO PCP NO PCP Subjective: * Chief Complaints: * 1 . Hearing loss. * Medical History: Objective: * Vitals: * Physical Examination: Assessment: Plan: * Treatment: * Images: * Electronic signature of DMITRI Noriega on 05/06/2025 at 11:29 AM EST Sign off status: Pending * Provider: Ligia Multani Business Developer Date: 0 03/26/2025 Generated for Dianna garcia/Regan/eTransmitting on: 1 07/06/2024 11:29 AM EST
--- OUTSIDE RECORDS SUMMARY | 2025-03-26 09:30 | XMS_ITS ---
Author Organization [facility] Address [address] [facility] [address] [place] [address] Care Team Providers Care Auto Club Travel Counselor Name Role Phone NO PCP, NO PCP Primary Care Provider Unavailconnie Russell M.D, M.P.H, Emilie Sapp REASON FOR VISIT hearing loss Encounters Encounter Location Date Provider Diagnosis [facility] [address] [address] 03/26/2025 Emilie Russell Plan Of Treatment No Information Progress Notes * MACIELAbdulkadirjoeDOB: [birth year] (64 yo M)Acc No.[id number]:03/26/2025 Progress Note Patient: Aidan ROSARIO Provider: Gabriele Russell M.D.,M.P.H :1960 A ge:64 Y S ex:Male Date:03/26/2025 Address:[address] [place], [place] [phone] Pcp:NO PCP NO PCP Subjective: * Chief Complaints: * 1 . Hearing loss. * Medical History: Objective: * Vitals: * Physical Examination: Assessment: Plan: * Treatment: * Images: * Electronic signature of Jen Russell M.D, M.P.H, Dereje,M.P.H on 05/06/2025 at 11:29 AM EST Sign off status: Pending * Provider: Gabriele Russell M.D.,M.P.H Date: 0 03/26/2025 Generated for Dianna garcia/Regan/Maurice on: 1 07/06/2024 11:29 AM EST
--- OUTSIDE RECORDS SUMMARY | 2025-05-06 11:29 | XMS_ITS | Patient Health Record ---
Author Organization [facility] Address [address] [place] [address] Care Team Providers Care Teletype Clerk Name Role Phone NO PCP, NO PCP Primary Care Provider Sandra Russell M.D, M.P.H, Emilie Unavailable Rangel, Luzma Unavailable [phone] Reason For Referral No Information Plan Of Treatment No Information Insurance Providers Payer Name Payer Address Payer Phone Subscriber Number Group Number Insured Name Patient Relationship to Insured Coverage Start Date Coverage End Date Medicare [employer] [address] [facility] [place], [place] [id number] Aidan Eng Self - patient is the insured [facility] [address] [place] [address] [id number] Aidan Eng Self - patient is the insured
--- OUTSIDE RECORDS SUMMARY | 2025-05-06 11:30 | XMS_ITS | Data Portability ---
Author Organization [place] [facility], All[facility] Address [address] [address] Care Team Providers Care Manager Talent Management Name Role Phone SHANNON HATFIELD Primary Care Provider [phone] Assessment Encounter Date Assessment Date Assessment LastModified by Organization Details LastModified Time 01/28/2025 01/28/2025 1. Sudden right ear hearing loss The patient presents with right ear hearing loss for over two months with associated dizziness and no tinnitus. An MRI is necessary to evaluate for tumors or growths as recent CAT scan did not include assessment for an acoustic neuroma. Given the hearing loss has been over 2 months, there is no indication for oral or intratympanic steroids. Consider cross hearing aid or cochlear implant depending on results of MRI. Patient was instructed to contact me after the MRI to discuss the results. 2. Dizziness and headaches 3. Essential Hypertension, Hyperlipidemia, and Hypothyroidism Current treatments for hypertension, hyperlipidemia, and hypothyroidism remain unchanged. Management will continue as per usual care, focusing on the hearing and dizziness issues. [email or web address] Not available 01/28/2025 12:36:48 Plan of Treatment Reminders Order Date Submit Date Provider Last Modified By Organization Details Last Modified Time Details Appointments None recorded. Lab None recorded. Referral None recorded. Procedures None recorded. Surgeries None recorded. Imaging MRI, brain + internal auditory canal, w/wo contrast - next available. ...IAC protocol 2024 025 [facility], [address] [facility], [place], [address], 14:44:42 Medication Orders None recorded. Patient TargetsNo targets recorded. Patient Instructions Encounter Date Encounter Id Patient Instructions Last Modified By Organization Details Last Modified Time 01/28/2025 [id number] Please note: Parts of this encounter note have been generated by AI based on audio conversation. Patient consent was required prior to utilizing this technology. Content review was required prior to finalizing the note. [email or web address] Not available 01/28/2025 11:31:23 Reason for Referral None Reported. Results Created Date Observation Date Name Description Value Unit Range Abnormal Flag Note LastModifiedBy Organization Detail LastModifiedTime 01/22/2001/21/2025 audio gram No observ ation record ed. [email or web address] [facility] (Medical Records) [address] [place], [address], 01/29/2025 08:46:55 01/30/2001/22/2025 CT, head + brain , w/o contr ast No observ ation record ed. [facility] (Medical Records) [address] [place], [address], 01/29/2025 17:41:57 01/31/2001/29/2025 MRI, brain + inter nal audit ory canal , w/wo contr ast No observ ation record ed. [email or web address] [facility] (Medical Records) [address] [place], [address], 02/06/2025 11:23:44 Result Notes None recorded. Problems Name Problem SNOMED Code Status Onset Date Resolution Date Notes Provider Name and Address Organization Details Recorded Time Sensorineural hearing loss of bilateral ears 210226226 Active 2024 LINDA GRAY MD [address] [address], [place], [phone], [facility] - [facility] 11:27:53 Asymmetrical hearing loss 782816837 Active 2024 LINDA GRAY MD [address] [address], [place], [address], [facility] - [facility] 11:28:01 Dizziness 933206747 Active 2024 LINDA GRAY MD [address] [place] [address], [phone], [facility] - [facility] 11:30:12 Problem Notes None recorded. Medical Equipment None Reported. Allergies Allergen ID Allergen Name Allergen Category Reaction Reaction Severity Criticality Documentation Date Start Date Code Code System Note Provider Name and Address Organization Details Recorded Time 732365 lisinopri l medicatio n Not available Not available Not available 01/28/2025 18532 RxNorm Ramona Quiana stein [place] - [facility] 11:16:20 Medications Name Sig Start Date Stop Date Status Note LastModified by Organization Details LastModified Time celecoxib 200 mg capsule TAKE ONE CAPSULE BY MOUTH TWICE A DAY 01/28 completed Not Available Not Available Not Available prednisone 10 mg tablet TAKE 3 TABLETS BY MOUTH ONCE A DAY FOR 3 DAYS; THEN 2 TABLETS ONCE A DAY FOR 3 DAYS; THEN 1 TABLET ONCE A DAY FOR 3 DAYS. 01/28 completed Not Available Not Available Not Available enalapril maleate 10 mg tablet TAKE ONE TABLET BY MOUTH EVERY DAY active Not Available Not Available No t Available atorvastati n 10 mg tablet TAKE ONE TABLET BY MOUTH DAILY AT BEDTIME active Not Available Not Available No t Available acetaminoph en 300 mg-codeine 30 mg tablet TAKE ONE TABLET BY MOUTH EVERY 8 HOURS NEEDED FOR PAIN FOR 7 DAYS 01/28 completed Not Available Not Available Not Available amoxicillin 500 mg tablet TAKE ONE TABLET BY MOUTH EVERY 12 HOURS FOR 7 DAYS 01/21 completed Not Available Not Available Not Available methocarbam ol 750 mg tablet TAKE ONE TABLET BY MOUTH TWICE A DAY NEEDED FOR PAIN 01/28 completed Not Available Not Available Not Available levothyroxi ne 50 mcg tablet TAKE ONE TABLET BY MOUTH EVERY DAY 01/28 completed Not Available Not Available Not Available allopurinol 300 mg tablet TAKE ONE TABLET BY MOUTH EVERY DAY active Not Available Not Available No t Available methylpredn isolone 4 mg tablets in a dose pack TAKE DAILY PER PACKAGE INSTRUCTI ONS 01/28 completed Not Available Not Available Not Available fenofibrate 160 mg tablet TAKE ONE TABLET BY MOUTH EVERY DAY active Not Available Not Available No t Available Vitals Date Recorded Body height Body mass index (BMI) Body weight Provider Name and Address Organization Details Last Updated DateTime 01/28/2025 162.56 cm 24 kg/m2 89410.93 g Ramona Fernandes [facility] 01/28/2025 11:16:10 Social History None recorded. Functional Status None recorded. Mental Status None recorded. Family History Nothing Reported. Medical History Condition Response Hearing Loss Y Thyroid Problems Y Hypertension Y Past Encounters Encounter ID Performer Location Encounter Start Date Encounter Closed Date Diagnosis/Indication Diagnosis SNOMED-CT Code Diagnosis ICD10 Code Diagnosis IMO Codes Diagnosis Note [id number] LINDA FOX MD [facility] [address] [address] 01/28/2025 10:38:30 01/28/2025 11:34:25 Sensorineural hearing loss of bilateral ears 774711137 H90.3 [id number] Asymmetric al hearing loss 992186811 H91.8X3 741877 Dizziness 419395121 R42 82200 Health Concerns Section Related Observation LastModified by Organization Detai ls LastModified Time None Recorded Concern Status LastModified by Organization Details LastModified Time None Recorded Advance Directives Directive None Recorded Payers Insurance Date Sequence Insurance Name Policy Number Policy Narvaez Covered Member ID Narvaez Member ID Guarantor Name 01/28/2025 2 [place] [facility] [id number] [facility] 01/28/2025 1 [place] [facility] [id number] [facility] Notes Date Note Type Note Provider Name and Address Organization Details Recorded Time 01/28/2025 text/html The patient is a 64-year-old male presenting with sudden right ear hearing loss and dizziness that began two and a half months ago. There has been no symptom improvement since the onset of hearing loss which was sudden and accompanied by dizziness and headaches. The patient underwent a hearing test on 01/13/2025 which led to referral to our office. We had attempted to contact the patient multiple times to schedule. Patient reports that audiometric testing was delayed. Did not have any treatment with steroids LINDA DIETZ MD [address] [place] [address], [phone], [facility] - [facility] 01/28/2025 12:36:55
--- NOTE | 2025-05-06 14:53 | MHC.AU.HA1 ---
Hearing Aid Evaluation Date of Visit: 05/06/25 Historical Information: Description of Hearing: Right Ear: Severe sloping to profound rising to severe mixed hearing loss; Left Ear: Mild sloping to moderately-severe sensorineural hearing loss Summary: Received medical clearance from [facility]; however, only for right ear. Also evaluated at [facility], as he wanted other opinions, provided copy of that evaluation. Discussed difference between traditional AMBROSIO and BiCROS system. Would not recommend traditional AMBROSIO for right ear given severity of hearing loss and no speech discrimination in that ear. Aidan agreeable to trying BiCROS system. Need updated medical clearance. Discussed manufacturers, styles, and technology. Aidan opted for rechargeable BiCROS system compatible with Android phone. Faxed medical clearance back to [facility] with request to update it to include BiCROS system, if medically cleared. HAs will be ordering pending receipt of updated medical clearance. Hearing Aid Prescription: Based on the individual?s shared listening needs, communication environments, dexterity, desire for connectivity, and personal preferences, the following prescription for amplification has been made: Right ear: Make, Model, Color: Phonak CROS I-R Color: Black Battery Size: Rechargeable Propeller Engineer/Slim Tube: 1C Type of Earmold/Dome/CShell/SlimTip: Medium vented dome Left ear: Make, Model, Color: Phonak Audeo I70-R Color: Black Battery Size: Rechargeable Propeller Engineer/Slim Tube: 1M Type of Earmold/Dome/CShell/SlimTip: Medium vented dome Accessories/Assistive Technology: X Ray Technician Plan of Care: Patient wishes to purchase hearing aids as prescribed Action Taken/Action Needed: Medical Clearance to be requested from PCP/ENT. Hearing Instrument Fitting to be scheduled when materials arrive Signature: Provider: Agustin Potts, [facility]
== END 2025-05-06 10:00 | disposition home or self-care (01) ==
LOC: HO.HAP 09:59
PROVIDERS: PCP Physician Assistant; Visit Provider Otolaryngology
DX: Z46.1 Encounter for fitting and adjustment of hearing aid (principal); H90.A22 Sensorineural hearing loss, unilateral, left ear, with restricted hearing on the contralateral side; H90.A31 Mixed conductive and sensorineural hearing loss, unilateral, right ear with restricted hearing on the contralateral side
CPT/HCPCS: 92591

== ENCOUNTER 2025-06-11 08:56 | Outpatient (REF) | payer MEDICARE, MEDICAID, SELFPAY ==
--- NOTE | 2025-06-11 09:47 | MHC.AU.HA2 ---
Hearing Instrument Fitting- Adult- Binaural Date of Visit: 06/11/25 Hearing Instruments Dispensed: Right Ear: Make, Model, Color, Serial Number: Renea CROS I-R SN: [id number] Color: Black Powder Press Operator Repair Warranty: 06/25/2028 Powder Press Operator Loss and Damage Warranty: 06/25/2028 [facility] Service Plan: 06/11/2025 Battery Size: Rechargeable Intake Man/Slim Tube: 1C [place]/Dome/CShell/SlimTip: Small vented dome (no retention tail) Type of Wax Guard: Cerustop Left Ear: Make, Model, Color, Serial Number: Renea Audeo [id number] SN: [id number] Color: Black Powder Press Operator Repair Warranty: 06/25/2028 Powder Press Operator Loss and Damage Warranty: 06/25/2028 [facility] Service Plan: 06/11/2026 Battery Size: Rechargeable Intake Man/Slim Tube: 1M [place]/Dome/CShell/SlimTip: Small vented dome (no retention tail) Type of Wax Guard: Cerustop Accessories/Assistive Technology: Phonak Welding Machine Operator Electron Beam RAYSHAWN SN: [id number] Summary of Fitting: Ran feedback analyzer and real ear measures. Decreased to 85% gain level. Discussed care, use, and rechargeability including manually turning on/off, VC use, and changing domes and wax guards. Practiced insertion/removal. Explained how CROS works again and importance of daily, consistent use in acclimating to HAs. Discussed bluetooth but Aidan did not want to pair to cellphone at this time. Recommendations: A hearing instrument follow-up was scheduled. Diagnosis Code(s): Primary Diagnosis: H90.A22 SNHL, Unilateral, Left Ear, W/Restricted Contralateral Hearing Secondary Diagnosis: H90.A31 Mixed HL, Unilateral Right Ear, W/Restricted Contralateral Signature: Provider: Agustin Potts, [facility]
== END 2025-06-11 08:57 | disposition home or self-care (01) ==
LOC: HO.HAP 08:56
PROVIDERS: Visit Provider Physician Assistant
DX: H90.A31 Mixed conductive and sensorineural hearing loss, unilateral, right ear with restricted hearing on the contralateral side (principal)
CPT/HCPCS: V5011; V5020; V5221; V5240